=== PATIENT | male | born 1935 | race Caucasian/White ===

== ENCOUNTER 2017-08-05 13:53 | Inpatient (IN) | payer MEDICARE, MEDICAID ==
--- NOTE | 2017-08-05 14:30 | ER Document Report ---
ED General - General Chief Complaint: Shortness Of Breath Stated Complaint: SHORTNESS OF BREATH Time Seen by Provider: 08/05/17 14:03 Notes: 81-year-old male with CHF presents with worsening shortness of breath for 3 days combined with orthopnea and leg swelling now constant and increasing. No med changes no dietary indiscretions. Sent with hypoxia from his employee adviser' s office. TRAVEL OUTSIDE OF THE [place] IN LAST 30 DAYS: No - Related Data Allergies/Adverse Reactions: No Known Allergies Allergy (Verified 08/05/17 14:42) Past Medical History - Social History Smoking Status: Former Smoker Family History: Malignancy - Past Medical History Cardiac Medical History: Reports: Hx Atrial Fibrillation, Hx Congestive Heart Failure, Hx Coronary Artery Disease, Hx Hypercholesterolemia, Hx Hypertension - on meds Denies: Hx Heart Attack Pulmonary Medical History: Denies: Hx Asthma, Hx Bronchitis, Hx COPD, Hx Pneumonia Neurological Medical History: Denies: Hx Cerebrovascular Accident, Hx Seizures Endocrine Medical History: Reports: Hx Diabetes Mellitus Type 2 Renal/ Medical History: Reports: Hx Benign Prostatic Hyperplasia Musculoskeltal Medical History: Reports Hx Arthritis Psychiatric Medical History: Denies: Hx Depression - Immunizations Immunizations up to date: Yes Hx Diphtheria, Pertussis, Tetanus Vaccination: No - unsure Hx Pneumococcal Vaccination: 05/30/12 Review of Systems - Review of Systems Notes: REVIEW OF SYSTEMS GEN: Denies fever, chills, weight loss ENT: Denies sore throat, nasal discharge, ear pain EYES: Denies blurry vision, eye pain, discharge CV: Denies chest pain, palpitations, edema RESP: Denies cough, s positive shortness of breath and difficulty breathing GI: Denies abdominal pain, nausea, vomiting, diarrhea MSK: Denies joint pain, positive bilateral leg swelling SKIN: Denies rash, skin lesions LYMPH: Denies swollen glands/lymph nodes NEURO: Denies headache, focal weakness or numbness, dizziness PSYCH: Denies depression, suicidal or homicidal ideation PHYSICAL EXAMINATION General: Mild distress acutely ill Head: Atraumatic, normocephalic ENT: Mouth normal, oropharynx moist, no exudates or tonsillar enlargement Eyes: Conjunctiva normal, pupils equal, lids normal Neck: No JVD, supple, no guarding CVS: Normal rate, regular rhythm, no murmurs Resp: Mild respiratory distress, diminished at bilateral bases, tachypneic GI: Nondistended, soft, no tenderness to palpation, no rebound or guarding Ext: No deformities, 2+ bilateral leg edema, normal range of motion in upper and lower ext Back: No CVA or midline TTP Skin: No rash, warm Lymphatic: No lymphadeopathy noted Neuro: Awake, alert. Face symmetric. GCS 15. Physical Exam - Vital signs Vitals: Resp Pulse Ox 17 93 08/05/17 14:00 08/05/17 14:00 Course - Re-evaluation Re-evalutation: 08/05/17 14:30 Signs and symptoms of worsening congestive heart failure. No fever cough to suggest pneumonia. Patient is requiring 6 L nasal cannula but does not need BiPAP at this time. His ECG shows a conduction block which is old with no acute ischemia. X-rays ordered labs we ordered. Aspirin will be given. Differential includes CHF salt load dietary noncompliance, uncontrolled hypertension. 08/05/17 15:03 Patient stable in the ED. Labs show elevated BNP but a negative troponin. X- ray confirms heart failure. Given Lasix and aspirin. Discussed case with Dr. kapoor hospitalist who will admit to the hospital. - Vital Signs Vital signs: Temp Pulse Resp BP Pulse Ox 17 117/64 93 08/05/17 14:16 08/05/17 14:16 08/05/17 14:16 - Laboratory Result Diagrams: 08/05/17 14:05 08/05/17 14:05 Laboratory results interpreted by me: 08/05/17 08/05/17 08/05/17 14:05 14:05 14:05 WBC 17.7 H RDW 15.0 H Seg Neuts % (Manual) 87 H Lymphocytes % (Manual) 10 L Abs Neuts (Manual) 15.4 H BUN 40 H Creatinine 1.56 H Est GFR ( Amer) 52 L Est GFR (Non-Af Amer) 43 L NT-Pro-B Natriuret Pep 5120 H - Diagnostic Test Radiology reviewed: Image reviewed, Reports reviewed - EKG Interpretation by Me EKG shows normal: Sinus rhythm Rate: Normal [place]/QRS: RBBB When compared to previous EKG there are: No significant change Discharge - Discharge Clinical Impression: Acute decompensated heart failure Condition: Fair Disposition: ADMITTED INPATIENT Admitting Provider: Hospitalist Unit Admitted: Telemetry Referrals: KATHI GARCIA MD [Primary Care Provider] - Follow up as needed
[2017-08-05 14:32] LABS: HEMATOCRIT 41.2 % (37.9-51.0); HEMOGLOBIN 13.9 g/dL (13.5-17.0); MEAN CORPUSCULAR HEMOGLOBIN 30.5 pg (27.0-33.4); MEAN CORPUSCULAR HGB CONC 33.6 g/dL (32.0-36.0); MEAN CORPUSCULAR VOLUME 91 fl (80-97); PLATELET COUNT 172 10^3/uL (150-450); RED BLOOD COUNT 4.54 10^6/uL (4.35-5.55); WHITE BLOOD COUNT 17.7 10^3/uL (4.0-10.5)
[2017-08-05] MEDS ORDERED: FUROSEMIDE INJ/PF 40 MG/4 ML SDV IV ONE (14:39)
[2017-08-05 14:44] LABS: ANION GAP 15 (5-19); BLOOD UREA NITROGEN 40 mg/dL (7-20); CALCIUM 9.9 mg/dL (8.4-10.2); CARBON DIOXIDE 22 mmol/L (22-30); CHLORIDE 103 mmol/L (98-107); GLUCOSE 108 mg/dL (75-110); POTASSIUM 4.8 mmol/L (3.6-5.0); SODIUM 140.1 mmol/L (137-145)
[2017-08-05 14:52] LABS: ABSOLUTE LYMPHOCYTES# (MANUAL) 1.8 10^3/uL (0.5-4.7); ABSOLUTE MONOCYTES # (MANUAL) 0.5 10^3/uL (0.1-1.4); ABSOLUTE NEUTROPHILS# (MANUAL) 15.4 10^3/uL (1.7-8.2); ANISOCYTOSIS SLIGHT; BASOPHILS % (MANUAL) 0 % (0-2); EOSINOPHILS % (MANUAL) 0 % (0-6); HYPOCHROMASIA SLIGHT; LYMPHOCYTES % (MANUAL) 10 % (13-45); MONOCYTES % (MANUAL) 3 % (3-13); PLATELET COMMENT ADEQUATE; POLYCHROMASIA SLIGHT; SEGMENTED NEUTROPHILS % (MAN) 87 % (42-78); TOTAL CELLS COUNTED 100; TOXIC GRANULATION 1+; TOXIC VACUOLATION PRESENT
[2017-08-05 14:56] LABS: NT PRO BNP 5120 pg/mL (<450)
[2017-08-05 14:58] LABS: TROPONIN I < 0.012 ng/mL
--- NOTE | 2017-08-05 15:07 | RADIOLOGY REPORT (SQ) ---
EXAM DESCRIPTION: CHEST SINGLE VIEW COMPLETED DATE/TIME: 08/05/2017 2:49 pm REASON FOR STUDY: CHF SOB COMPARISON: 03/31/2017 NUMBER OF VIEWS: One view. TECHNIQUE: Single frontal radiographic view of the chest acquired. LIMITATIONS: None. FINDINGS: LUNGS AND PLEURA: No opacities, masses or pneumothorax. No pleural effusion. MEDIASTINUM AND HILAR STRUCTURES: No masses or contour abnormality. HEART AND VASCULATURE: Cardiac enlargement. Vascular congestion. BONES: No acute findings. HARDWARE: None in the chest. OTHER: No other significant finding. IMPRESSION: CARDIAC ENLARGEMENT. VASCULAR CONGESTION. TECHNICAL DOCUMENTATION: JOB ID: [id number] [employer]- All Rights Reserved Reading location - IP/workstation name: [email or web address]
[2017-08-05] MEDS ORDERED: METOPROLOL SUCCINATE 25 MG TAB.SR.24H PO ONE (15:14)
[2017-08-05] MEDS ORDERED: GLUCAGON,HUMAN RECOMB 1 MG INJ IM PRN (15:15)
[2017-08-05] MEDS ORDERED: DEXTROSE 50%-WATER 25 GM/50 ML DISP.SYRIN IV PRN ×2 (15:15)
[2017-08-05] MEDS ORDERED: METOLAZONE 2.5 MG TABLET PO SCH (15:15)
[2017-08-05] MEDS ORDERED: DEXTROSE 40% GEL 15 GM TUBE PO PRN ×2 (15:15)
--- NOTE | 2017-08-05 15:25 | RADIOLOGY REPORT (SQ) ---
EXAM DESCRIPTION: CT HEAD WITHOUT COMPLETED DATE/TIME: 08/05/2017 3:13 pm REASON FOR STUDY: fall laceration COMPARISON: None. TECHNIQUE: Axial images acquired through the brain without intravenous contrast. Images reviewed wi th bone, brain and subdural windows. Images stored on PACS. All CT scanners at this facility use dose modulation, iterative reconstruction, and/or weight based d osing when appropriate to reduce radiation dose to as low as reasonably achievable (ALARA). [facility]: Dose Right [facility]: CareDose [facility]: Dose Right [facility]: Teradose 4D [facility]: [employer] RADIATION DOSE: CT Rad equipment meets quality standard of care and radiation dose reduction techniq ues were employed. CTDIvol: 64.6 mGy. DLP: 1034 mGy-cm.mGy. LIMITATIONS: None. FINDINGS: VENTRICLES: Prominent. CEREBRUM: No masses. No hemorrhage. No midline shift. Areas of low density in the white matter mos t likely due to chronic micro-vascular ischemic change. No evidence for acute infarction. CEREBELLUM: No masses. No hemorrhage. No alteration of density. No evidence for acute infarction. EXTRAAXIAL SPACES: Age-related involutional change. No fluid collections. No masses. ORBITS AND GLOBE: No intra- or extraconal masses. Normal contour of globe without masses. CALVARIUM: No fracture. PARANASAL SINUSES: No fluid or mucosal thickening. SOFT TISSUES: Left posterior scalp swelling/hematoma. OTHER: No other significant finding. IMPRESSION: CHRONIC CHANGES OF ATROPHY AND MICROVASCULAR ISCHEMIA. LEFT POSTERIOR SCALP SWELLING/HE MATOMA. NO FRACTURE OR OTHER ACUTE FINDINGS. EVIDENCE OF ACUTE STROKE: NO. TECHNICAL DOCUMENTATION: JOB ID: [id number] Quality ID # [id number]: Final reports with documentation of one or more dose reduction techniques (e.g., Au tomated exposure control, adjustment of the mA and/or kV according to patient size, use of iterative reconstruction technique) 2010 [employer]- All Rights Reserved Reading location - IP/workstation name: [email or web address]-[email or web address]
[2017-08-05 16:32] LABS: INTERNATIONAL RATION (INR) 2.31; PROTHROMBIN TIME 26.6 SEC (11.4-15.4)
--- NOTE | 2017-08-05 17:19 | RADIOLOGY REPORT (SQ) ---
EXAM DESCRIPTION: ANKLE RIGHT COMPLETE COMPLETED DATE/TIME: 08/05/2017 5:00 pm REASON FOR STUDY: fall COMPARISON: None. NUMBER OF VIEWS: Three views. TECHNIQUE: AP, lateral, and oblique radiographic images acquired of the right ankle. LIMITATIONS: None. FINDINGS: MINERALIZATION: Normal. BONES: No acute fracture or dislocation. No worrisome bone lesions. JOINTS: No effusions. SOFT TISSUES: No soft tissue swelling. No foreign body. OTHER: No other significant finding. IMPRESSION: NEGATIVE STUDY OF THE RIGHT ANKLE. NO RADIOGRAPHIC EVIDENCE OF ACUTE INJURY. TECHNICAL DOCUMENTATION: JOB ID: [id number] [employer]- All Rights Reserved Reading location - IP/workstation name: [email or web address]
[2017-08-05 18:05] LABS: APPEARANCE,URINE SLIGHTLY-CLOUDY; BILIRUBIN,URINE NEGATIVE (NEGATIVE); COLOR,URINE YELLOW; GLUCOSE, URINE NEGATIVE (NEGATIVE); KETONES,URINE NEGATIVE (NEGATIVE); LEUKOCYTE ESTERASE,URINE MODERATE (NEGATIVE); NITRITE,URINE NEGATIVE (NEGATIVE); PROTEIN,URINE 30 mg/dL (NEGATIVE); URINE SPECIFIC GRAVITY 1.011; UROBILINOGEN,URINE NEGATIVE mg/dL (<2.0)
[2017-08-05] MEDS: TAMSULOSIN HCL 0.4 MG CAP.SR.24H PO SCH (18:44)
--- NOTE | 2017-08-05 21:10 | EKG REPORT ---
SEVERITY:- ABNORMAL ECG - SINUS RHYTHM ATRIAL PREMATURE COMPLEX IVCD, CONSIDER ATYPICAL RBBB INFERIOR INFARCT, OLD LATERAL INFARCT, AGE INDETERMINATE ANTERIOR INFARCT, AGE INDETERMINATE : Confirmed by: Rafi Mendoza 05-Aug-2017 21:08:53
[2017-08-05] MEDS: FUROSEMIDE INJ/PF 40 MG/4 ML SDV IV SCH (21:59)
[2017-08-05] MEDS ORDERED: SIMVASTATIN 40 MG TABLET PO SCH (22:00)
--- NOTE | 2017-08-06 00:42 | PDOC H&P ---
History of Present Illness Admission Date/PCP: 08/05/17 15:09 KATHI GARCIA MD Patient complains of: CHF exacerbation and syncope History of Present Illness: CHAO VERMA is a 81 year old male history of atrial fibrillation on Coumadin, CKD, hypoxic respiratory failure on oxygen, gait dysfunction, BPH, obstructive sleep apnea on CPAP, congestive heart failure presenting with increasing shortness of breath and pedal edema. Patient does use supplemental oxygen however does not use as he should. Patient also states that he did not take his Lasix today because he had to go to his doctor's appointment and did not want to have to urinate. Patient states that he took his oxygen tank to the car and when he went back to his house to lock the door he woke up on his back on the ground staring up at the mayuri. Patient got up and proceeded to drive himself to his cardiology appointment. Patient was sent from Dr. Mendoza office to the ED for further evaluation. Patient denied any chest pain but does report having a lot of dizzy spells. He states that his dizzy spells are chronic. Patient reports hitting his head and hurting his right ankle. In the ED patient was noted to have vascular congestion and a BNP of 5120. Patient also had a laceration to the left side of his scalp and a hematoma. CT scan done and did not show any intracranial bleeding. Hospitalist was called to admit patient for CHF exacerbation with mild hypoxia. Past Medical History Cardiac Medical History: Reports: Atrial Fibrillation, Congestive Heart Failure , Coronary Artery Disease, Hyperlipidema, Hypertension - on meds Denies: Myocardial Infarction Pulmonary Medical History: Denies: Asthma, Bronchitis, Chronic Obstructive Pulmonary Disease (COPD), Pneumonia Neurological Medical History: Denies: Seizures Endocrine Medical History: Reports: Diabetes Mellitus Type 2 Musculoskeltal Medical History: Reports: Arthritis Psychiatric Medical History: Denies: Depression Hematology: Denies: Anemia Past Surgical History Past Surgical History: Reports: Other - Skin cancer excision Social History Smoking Status: Former Smoker Frequency of Alcohol Use: None Hx Recreational Drug Use: No Drugs: None Hx Prescription Drug Abuse: No - Advance Directive Resuscitation Status: Full Code Family History Family History: Malignancy Parental Family History Reviewed: No Children Family History Reviewed: No Sibling(s) Family History Reviewed.: No Medication/Allergy Home Medications: Amlodipine Besylate [Norvasc 5 mg Tablet] 5 mg PO DAILY 08/05/17 Atenolol [Tenormin 50 mg Tablet] 25 mg PO DAILY 08/05/17 Diltiazem HCl [Cartia Xt] 180 mg PO Q12 08/05/17 Febuxostat [Uloric 40 mg Tablet] 40 mg PO MOWEFR@0800 08/05/17 Furosemide [Lasix 40 mg Tablet] 40 mg PO MOWEFR@0800 08/05/17 Glipizide [Glipizide Xl] 10 mg PO DAILY 08/05/17 Insulin Detemir [Levemir Flextouch] 30 unit SQ QHS 08/05/17 Losartan Potassium [Cozaar 100 mg Tablet] 100 mg PO DAILY 08/05/17 Metformin HCl [Glucophage 500 mg Tablet] 500 mg PO DAILY 08/05/17 Metolazone [Zaroxolyn 2.5 mg Tablet] 2.5 mg PO MOWEFR@0800 08/05/17 Potassium Chloride [Klor-Con M20] 20 meq PO MOWEFR@0800 08/05/17 Simvastatin [Zocor 20 mg Tablet] 20 mg PO QHS 08/05/17 Tamsulosin HCl [Flomax 0.4 mg Cap.sr] 0.4 mg PO PCSUPPER 08/05/17 Warfarin Sodium [Coumadin 5 mg Tablet] 5 mg PO DAILY 08/05/17 Allergies/Adverse Reactions: No Known Allergies Allergy (Verified 08/05/17 14:42) Review of Systems Constitutional: ABSENT: chills, fever(s), headache(s), weight gain, weight loss Eyes: ABSENT: visual disturbances Ears: ABSENT: hearing changes Cardiovascular: PRESENT: dyspnea on exertion, edema, orthropnea. ABSENT: chest pain, palpitations Respiratory: ABSENT: cough, hemoptysis Gastrointestinal: ABSENT: abdominal pain, constipation, diarrhea, hematemesis, hematochezia, nausea, vomiting Genitourinary: ABSENT: dysuria, hematuria Musculoskeletal: ABSENT: joint swelling Integumentary: ABSENT: rash, wounds Neurological: PRESENT: dizziness, syncope. ABSENT: abnormal gait, abnormal speech, confusion, focal weakness Psychiatric: ABSENT: anxiety, depression, homidical ideation, suicidal ideation Endocrine: ABSENT: cold intolerance, heat intolerance, polydipsia, polyuria Hematologic/Lymphatic: ABSENT: easy bleeding, easy bruising Physical Exam Vital Signs: Temp Pulse Resp BP Pulse Ox 80 17 130/76 H 98 08/05/17 18:40 08/05/17 22:32 08/05/17 18:40 08/05/17 22:32 Intake & Output 08/04/17 08/05/17 08/06/17 06:59 06:59 06:59 Weight 83.007 kg General appearance: PRESENT: no acute distress, mild distress Head exam: PRESENT: other - Hematoma on the left side of his scalp Eye exam: PRESENT: EOMI. ABSENT: scleral icterus Ear exam: PRESENT: normal external ear exam Mouth exam: PRESENT: moist Neck exam: ABSENT: carotid bruit, JVD, lymphadenopathy, thyromegaly Respiratory exam: PRESENT: decreased breath sounds, other - Lateral basilar crackles. ABSENT: rales, rhonchi Cardiovascular exam: PRESENT: RRR. ABSENT: diastolic murmur, rubs, systolic murmur GI/Abdominal exam: PRESENT: normal bowel sounds, soft. ABSENT: distended, guarding, mass, organolmegaly, rebound, tenderness Rectal exam: PRESENT: deferred Extremities exam: PRESENT: +2 edema. ABSENT: calf tenderness, clubbing, pedal edema Neurological exam: PRESENT: alert, awake, oriented to person, oriented to place , oriented to time, oriented to situation, CN II-XII grossly intact. ABSENT: motor sensory deficit Psychiatric exam: PRESENT: appropriate affect, normal mood. ABSENT: homicidal ideation, suicidal ideation Skin exam: PRESENT: dry, intact, warm. ABSENT: cyanosis, rash Results Laboratory Results: 08/05/17 17:00 Urine Color YELLOW Urine Appearance SLIGHTLY-CLOUDY Urine pH 5.0 Ur Specific [place] 1.011 Urine Protein 30 H Urine Glucose (UA) NEGATIVE Urine Ketones NEGATIVE Urine Blood NEGATIVE Urine Nitrite NEGATIVE Ur Leukocyte Esterase MODERATE H Urine WBC (Auto) 39 Urine RBC (Auto) 2 Impressions: Ankle X-Ray 08/05/17 00:00 IMPRESSION: NEGATIVE STUDY OF THE RIGHT ANKLE. NO RADIOGRAPHIC EVIDENCE OF ACUTE INJURY. Chest X-Ray 08/05/17 14:04 IMPRESSION: CARDIAC ENLARGEMENT. VASCULAR CONGESTION. Head CT 08/05/17 15:04 IMPRESSION: CHRONIC CHANGES OF ATROPHY AND MICROVASCULAR ISCHEMIA. LEFT POSTERIOR SCALP SWELLING/HEMATOMA. NO FRACTURE OR OTHER ACUTE FINDINGS. EVIDENCE OF ACUTE STROKE: NO. Assessment & Plan - Diagnosis (1) Acute and chronic respiratory failure with hypoxia Is this a current diagnosis for this admission?: Yes Plan: On chronic hypoxic respiratory failure secondary to CHF exacerbation. Patient also noncompliant with using his supplemental oxygen. (2) Syncope and collapse Plan: Syncopal episode. Patient reports having dizzy spells. These can be secondary to his medications. Patient on several medications which can cause orthostasis. Was check orthostatic blood pressures. Patient already on telemetry. Will check cardiac echo and carotid Dopplers. PT consulted. (3) Leukocytosis Is this a current diagnosis for this admission?: Yes Plan: Patient with a white count of 17,000. Chest x-ray shows congestion. Patient denies feeling sick or having any urinary symptoms. Will check a UA. UA did show leukocyte esterase large WBC. Will start patient on ceftriaxone. Will send specimen and lab for culture. Can DC antibiotics if culture is negative. (4) Acute on chronic diastolic congestive heart failure Is this a current diagnosis for this admission?: Yes Plan: Patient acute exacerbation of grade 2 diastolic dysfunction. Patient last cardiac echo was done in 2015. Will start patient on IV Lasix 40 mg twice daily along with metolazone. Patient on Toprol-XL and losartan. Will place patient on fluid restriction and low-sodium diet. Will Court strict ins and outs and daily weights. Will consult patient paleobotanist Dr. Mendoza. Will repeat cardiac echo. Monitor electrolytes closely and replace accordingly. (5) Atrial fibrillation and flutter Is this a current diagnosis for this admission?: Yes Plan: Patient with chronic history of atrial fibrillation and atrial flutter flutter. Patient on Coumadin for anticoagulation. Patient normally on atenolol however switched to Toprol XL 25 mg daily. Patient heart rate is well controlled at this time. Patient normally on diltiazem as well. Can reintroduce this medication if blood pressure tolerates. (6) CKD (chronic kidney disease), stage III Is this a current diagnosis for this admission?: Yes Plan: She was CKD stage III which appears to be stable at this time. (7) Obstructive sleep apnea Is this a current diagnosis for this admission?: Yes Plan: Continue CPAP at night. (8) Diabetes mellitus Qualifiers: Diabetes mellitus type: type 2 Diabetes mellitus complication status: without complication Qualified Code(s): E11.9 - Type 2 diabetes mellitus without complications Is this a current diagnosis for this admission?: Yes Plan: You home regimen and sliding scale insulin. (9) Trauma Is this a current diagnosis for this admission?: Yes Plan: CT scan of the head shows left scalp hematoma. Will order x-ray of patient's right ankle as he states it is painful. Follow-up shows that the x-ray of the ankle is negative. - Time Time Spent: 30 to 50 Minutes - Inpatient Certification Medical Necessity: Significant Comorbidiites Make Outpatient Treatment Too Risky , Need Close Monitoring Due to Risk of Patient Decompensation
[2017-08-06] MEDS ORDERED: SIMVASTATIN 40 MG TABLET PO SCH (00:46)
[2017-08-06] MEDS: LANSOPRAZOLE 30 MG TAB.RAP.DR PO SCH (06:30)
[2017-08-06 06:43] LABS: ABSOLUTE BASOPHILS # (AUTO) 0.1 10^3/uL (0.0-0.2); ABSOLUTE MONOCYTES (AUTO) 1.4 10^3/uL (0.1-1.4); ABSOLUTE NEUT (AUTO) 15.1 10^3/uL (1.7-8.2); BASOPHILS % (AUTO) 0.4 % (0-2); EOSINOPHILS % (AUTO) 0.1 % (0-6); HEMATOCRIT 38.1 % (37.9-51.0); HEMOGLOBIN 12.5 g/dL (13.5-17.0); LYMPHOCYTES % (AUTO) 5.7 % (13-45); MEAN CORPUSCULAR HGB CONC 32.8 g/dL (32.0-36.0); MEAN CORPUSCULAR VOLUME 91 fl (80-97); PLATELET COUNT 157 10^3/uL (150-450); RED BLOOD COUNT 4.17 10^6/uL (4.35-5.55); RED CELL DISTRIBUTION WIDTH 15.1 % (11.5-14.0); SEGMENTED NEUTROPHILS % (AUTO) 85.8 % (42-78); TOTAL CELLS COUNTED % (AUTO) 100 %; WHITE BLOOD COUNT 17.5 10^3/uL (4.0-10.5)
[2017-08-06 07:01] LABS: INTERNATIONAL RATION (INR) 1.98; PROTHROMBIN TIME 23.6 SEC (11.4-15.4)
[2017-08-06] MEDS ORDERED: WARFARIN SODIUM 4.5 MG PO SCH (10:00)
[2017-08-06] MEDS ORDERED: CEFTRIAXONE 1 GM/D5W RTU 1 GM/50 ML RTUPB IV SCH (10:00)
[2017-08-06] MEDS ORDERED: (PENDING PHARMACY ID) (Warfarin Sodium 5 MG) PO SCH (10:00)
[2017-08-06] MEDS ORDERED: WARFARIN SODIUM 5 MG TABLET PO SCH ×2 (10:00→22:00)
[2017-08-06] MEDS: CEFTRIAXONE SODIUM 1,000 MG in NORMAL SALINE 100 ML IV SCH (10:27)
[2017-08-06] MEDS: LOSARTAN POTASSIUM 50 MG TABLET PO SCH (10:28)
[2017-08-06] MEDS: METOPROLOL SUCCINATE 25 MG TAB.SR.24H PO SCH (10:29)
[2017-08-06] MEDS: FUROSEMIDE INJ/PF 40 MG/4 ML SDV IV SCH ×2 (10:29→21:26)
[2017-08-06] MEDS: ACETAMINOPHEN 325 MG TABLET PO PRN (10:45)
--- NOTE | 2017-08-06 14:28 | PDOC PROGRESS REPORT ---
Subjective Progress Note for:: 08/06/17 Subjective:: The patient is an 81-year-old male who sustained a syncopal episode yesterday while he was getting ready to go to his cardiology appointment. He did in fact drive himself to Dr. Mendoza's office. Dr. Mendoza then sent the patient to the emergency department for further evaluation. During the fall the patient did have a laceration of his scalp and hurt his right ankle. His right ankle is still exquisitely painful today but x-ray does not demonstrate a fracture. However, patient was unable to bear weight this morning with physical therapy. Reason For Visit: HEART FAILURE Physical Exam Vital Signs: Temp Pulse Resp BP Pulse Ox 98.6 F 80 18 111/63 93 08/06/17 11:42 08/06/17 11:42 08/06/17 11:42 08/06/17 11:42 08/06/17 11:42 Intake & Output 08/05/17 08/06/17 08/07/17 06:59 06:59 07:59 Intake Total 350 100 Output Total 975 Balance -625 100 Weight 79.3 kg Additional comments: The patient is an extremely pleasant elderly white male. His cognition and mentation are appropriate. His facial appearance is unremarkable. He appears to be well-nourished and well-developed. The patient's lungs are fairly clear but he does have crackles only at the left base posteriorly. His cardiac exam at this time is irregularly irregular. I do not appreciate any murmurs, gallops or rubs. The abdomen is obese but soft. Bowel sounds are present. Does not have any guarding or rebound noted and there are no hernias or masses present. The patient does have 2+ edema bilaterally. Patient's right ankle is exquisitely tender but there are no obvious deformities of the ankle. There are no acute skin lesions or rashes. The patient does have chronic changes of venous stasis. Results Laboratory Results: 08/06/17 06:25 08/05/17 08/06/17 08/06/17 17:00 06:25 06:25 WBC 17.5 H RBC 4.17 L Hgb 12.5 L Hct 38.1 MCV 91 MCH 30.0 MCHC 32.8 RDW 15.1 H Plt Count 157 Seg Neutrophils % 85.8 H Lymphocytes % 5.7 L Monocytes % 8.0 Eosinophils % 0.1 Basophils % 0.4 Absolute Neutrophils 15.1 H Absolute Lymphocytes 1.0 Absolute Monocytes 1.4 Absolute Eosinophils 0.0 Absolute Basophils 0.1 Magnesium 1.8 Urine Color YELLOW Urine Appearance SLIGHTLY-CLOUDY Urine pH 5.0 Ur Specific [place] 1.011 Urine Protein 30 H Urine Glucose (UA) NEGATIVE Urine Ketones NEGATIVE Urine Blood NEGATIVE Urine Nitrite NEGATIVE Ur Leukocyte Esterase MODERATE H Urine WBC (Auto) 39 Urine RBC (Auto) 2 Impressions: Ankle X-Ray 08/05/17 00:00 IMPRESSION: NEGATIVE STUDY OF THE RIGHT ANKLE. NO RADIOGRAPHIC EVIDENCE OF ACUTE INJURY. Chest X-Ray 08/05/17 14:04 IMPRESSION: CARDIAC ENLARGEMENT. VASCULAR CONGESTION. Head CT 08/05/17 15:04 IMPRESSION: CHRONIC CHANGES OF ATROPHY AND MICROVASCULAR ISCHEMIA. LEFT POSTERIOR SCALP SWELLING/HEMATOMA. NO FRACTURE OR OTHER ACUTE FINDINGS. EVIDENCE OF ACUTE STROKE: NO. Assessment & Plan - Diagnosis (1) Acute and chronic respiratory failure with hypoxia Is this a current diagnosis for this admission?: Yes Plan: Continue supplemental oxygen. (2) Leukocytosis Is this a current diagnosis for this admission?: Yes Plan: For some reason urine culture was canceled. I will reorder. In the interim we will continue ceftriaxone. (3) Syncope and collapse Is this a current diagnosis for this admission?: Yes Plan: Echocardiogram has been ordered. Cardiology consultation has been ordered. This is likely multifactorial from medications that can lead to orthostasis, hypoxia, unsteady gait. (4) Trauma Is this a current diagnosis for this admission?: Yes Plan: Patient is not a very good candidate for Coumadin. (5) Acute on chronic diastolic congestive heart failure Is this a current diagnosis for this admission?: Yes Plan: Per cardiology. (6) Diabetes mellitus Qualifiers: Diabetes mellitus type: type 2 Diabetes mellitus complication status: without complication Qualified Code(s): E11.9 - Type 2 diabetes mellitus without complications Is this a current diagnosis for this admission?: Yes Plan: Continue detemir and SSI. (7) Atrial fibrillation and flutter Is this a current diagnosis for this admission?: Yes Plan: Continue rate control agents. Patient is not a good candidate for anticoagulation. (8) CKD (chronic kidney disease), stage III Is this a current diagnosis for this admission?: Yes Plan: Stable. (9) Obstructive sleep apnea Is this a current diagnosis for this admission?: Yes Plan: Continue nightly CPAP. - Time Time Spent with patient: 25-34 minutes - Inpatient Certification Medical Necessity: Significant Comorbidiites Make Outpatient Treatment Too Risky , Need Close Monitoring Due to Risk of Patient Decompensation, Need For Continuous Telemetry Monitoring, Need for Pain Control, Need for IV Antibiotics , Risk of Complication if Not Cared For in Hospital, Risk of Diagnosis Which Will Require Inpatient Eval/Care/Monitoring
[2017-08-06 15:41] LABS: INTERNATIONAL RATION (INR) 1.91
--- NOTE | 2017-08-06 16:59 | PDOC CONSULTATION ---
Consultation Consult Date: 08/06/17 Attending physician:: LOUIE COOK Consult reason:: CHF History of Present Illness Admission Date/PCP: 08/05/17 15:09 KATHI GARCIA MD Patient complains of: Fall and shortness of breath and increasing pedal edema History of Present Illness: CHAO VERMA is a 81 year old male history of atrial fibrillation on Coumadin, CKD, hypoxic respiratory failure on oxygen, gait dysfunction, BPH, obstructive sleep apnea on CPAP, congestive heart failure presenting with increasing shortness of breath and pedal edema. Patient does use supplemental oxygen however does not use as he should. Patient also states that he did not take his Lasix today because he had to go to his doctor's appointment and did not want to have to urinate. Patient states that he took his oxygen tank to the car and when he went back to his house to lock the door he woke up on his back on the ground staring up at the mayuri. Patient got up and proceeded to drive himself to his cardiology appointment. Patient was sent from Dr. Mendoza office to the ED for further evaluation. Patient denied any chest pain but does report having a lot of dizzy spells. He states that his dizzy spells are chronic. Patient reports hitting his head and hurting his right ankle. In the ED patient was noted to have vascular congestion and a BNP of 5120. Patient also had a laceration to the left side of his scalp and a hematoma. CT scan done and did not show any intracranial bleeding. Hospitalist was called to admit patient for CHF exacerbation with mild hypoxia. This history was reviewed and mostly confirmed. Patient now claims that he tripped and fell rather than lost consciousness. He was seen by my physician executive administrative assistant yesterday in the office and was sent to the ER because of increasing pedal edema and a rather large bump on his head. She was concerned about internal bleeding. Subsequently CT scan was negative for internal bleed. Patient was however admitted for evaluation of CHF, which has been noted to be worsening and possible syncopal spells. Past Medical History Cardiac Medical History: Reports: Atrial Fibrillation, Congestive Heart Failure , Coronary Artery Disease, Hyperlipidema, Hypertension - on meds Denies: Myocardial Infarction Pulmonary Medical History: Denies: Asthma, Bronchitis, Chronic Obstructive Pulmonary Disease (COPD), Pneumonia Neurological Medical History: Denies: Seizures Endocrine Medical History: Reports: Diabetes Mellitus Type 2 Musculoskeltal Medical History: Reports: Arthritis Psychiatric Medical History: Denies: Depression Hematology: Denies: Anemia Past Surgical History Past Surgical History: Reports: Other - Skin cancer excision Social History Information Source: Patient Smoking Status: Former Smoker Frequency of Alcohol Use: None Hx Recreational Drug Use: No Drugs: None Hx Prescription Drug Abuse: No - Advance Directive Resuscitation Status: Full Code Surrogate healthcare decision maker:: Surrogate decision-maker this patient's brother. Family History Family History: Malignancy Parental Family History Reviewed: Yes Children Family History Reviewed: Yes Sibling(s) Family History Reviewed.: Yes - Negative for premature coronary artery disease or sudden cardiac in immediate family members. Medication/Allergy Home Medications: Amlodipine Besylate [Norvasc 5 mg Tablet] 5 mg PO DAILY 08/05/17 Atenolol [Tenormin 50 mg Tablet] 25 mg PO DAILY 08/05/17 Diltiazem HCl [Cartia Xt] 180 mg PO Q12 08/05/17 Febuxostat [Uloric 40 mg Tablet] 40 mg PO MOWEFR@0800 08/05/17 Furosemide [Lasix 40 mg Tablet] 40 mg PO MOWEFR@0800 08/05/17 Glipizide [Glipizide Xl] 10 mg PO DAILY 08/05/17 Insulin Detemir [Levemir Flextouch] 30 unit SQ QHS 08/05/17 Losartan Potassium [Cozaar 100 mg Tablet] 100 mg PO DAILY 08/05/17 Metformin HCl [Glucophage 500 mg Tablet] 500 mg PO DAILY 08/05/17 Metolazone [Zaroxolyn 2.5 mg Tablet] 2.5 mg PO MOWEFR@0800 08/05/17 Potassium Chloride [Klor-Con M20] 20 meq PO MOWEFR@0800 08/05/17 Simvastatin [Zocor 20 mg Tablet] 20 mg PO QHS 08/05/17 Tamsulosin HCl [Flomax 0.4 mg Cap.sr] 0.4 mg PO PCSUPPER 08/05/17 Warfarin Sodium [Coumadin 5 mg Tablet] 5 mg PO DAILY 08/05/17 Allergies/Adverse Reactions: No Known Allergies Allergy (Verified 08/05/17 14:42) Review of Systems Review of Systems: Please see history of present illness and past medical history as wall. Constitutional: No fever or chills reported. Head : No recent chronic headaches, recent head injury. Eyes: No recent eye pain, diplopia, redness, discharge, acute visual changes. Ears: No recent chronic ear pain, acute hearing loss, ear discharge. Oral cavity: No recent ulcerations, bleeding, oral cavity discomfort. Neck: No recent acute neck pain reported. Hematologic: No recent easy bruising or bleeding or hematologic malignancy reported. Lymphatic: No recent lymphatic malignancy, chronic lymphadenopathy reported yet Cardiovascular system review: See history of present illness. Respiratory system review: No recent chronic cough, hemoptysis, blood clots in the lungs reported. Mild Shortness of breath on exertion. Increasing pedal edema noted. Gastrointestinal system review: Negative for any recent acute or chronic abdominal pain, hematemesis, melena, recent change in bowel habits. Genitourinary system review: No recent acute or chronic hematuria, flank pain, UTI etc. reported. Skin system review: Negative for any recent abnormal bruising, no rash, no pruritus reported. Neurologic: No prior history of strokes, mini strokes, seizure disorder. Psychologic: No history of major psychosis or major depression reported. Musculoskeletal: Minor aches and pains reported. No acute joint swelling reported. Endocrine: No recent polyuria, polydipsia, recent heat or cold intolerance. Physical Exam Vital Signs: Temp Pulse Resp BP Pulse Ox 98.6 F 83 18 111/63 93 08/06/17 11:42 08/06/17 15:20 08/06/17 11:42 08/06/17 11:42 08/06/17 11:42 Intake & Output 08/05/17 08/06/17 08/07/17 06:59 06:59 07:59 Intake Total 350 340 Output Total 975 Balance -625 340 Weight 79.3 kg Exam: GENERAL: well-nourished and in no acute distress. Alert and oriented x3 HEAD: Atraumatic, normocephalic. EYES: Pupils equal round and reactive to light, extraocular movements intact, sclera anicteric, conjunctiva are normal. ENT: TMs normal, nares patent, oropharynx clear without exudates. Moist mucous membranes. No oral ulcerations or bleeding gums noted NECK: supple without lymphadenopathy. Trachea is central. No cervical or axillary lymphadenopathy noted. Carotids are 2+, JVD WNL LUNGS: Respiration seems nonlabored, no significant accessory muscle action noted. Bilateral coarse crackles with few scattered wheezes rales or rhonchi noted. No significant dullness noted on percussion. CHEST: Palpation of the chest wall shows no significant chest wall tenderness. No other significant abnormalities noted. 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 ABDOMEN: Soft, no significant tenderness appreciated, normoactive bowel sounds. No guarding, no rebound. No rigidity noted . No masses appreciated. EXTREMITIES: Pedal pulses are 1-2+, no calf tenderness noted. No clubbing or cyanosis.2+ pedal edema noted NEUROLOGICAL: Focused neurological exam showed no significant neurologic deficit. Normal speech, no focal weakness appreciated. PSYCH: Normal mood, normal affect. Judgment and insight within normal limits. SKIN: No significant ecchymosis, skin is noted to be warm. MUSCULOSKELETAL EXAM: No significant acute joint swelling noted. Results Laboratory Results: 08/06/17 06:25 08/05/17 08/06/17 08/06/17 17:00 06:25 06:25 WBC 17.5 H RBC 4.17 L Hgb 12.5 L Hct 38.1 MCV 91 MCH 30.0 MCHC 32.8 RDW 15.1 H Plt Count 157 Seg Neutrophils % 85.8 H Lymphocytes % 5.7 L Monocytes % 8.0 Eosinophils % 0.1 Basophils % 0.4 Absolute Neutrophils 15.1 H Absolute Lymphocytes 1.0 Absolute Monocytes 1.4 Absolute Eosinophils 0.0 Absolute Basophils 0.1 Magnesium 1.8 Urine Color YELLOW Urine Appearance SLIGHTLY-CLOUDY Urine pH 5.0 Ur Specific [place] 1.011 Urine Protein 30 H Urine Glucose (UA) NEGATIVE Urine Ketones NEGATIVE Urine Blood NEGATIVE Urine Nitrite NEGATIVE Ur Leukocyte Esterase MODERATE H Urine WBC (Auto) 39 Urine RBC (Auto) 2 EKG Comments: Probable sinus rhythm, cannot rule out atrial fibrillation. Right ventricular hypertrophy, APCs, possible inferior AL, old. Impressions: Ankle X-Ray 08/05/17 00:00 IMPRESSION: NEGATIVE STUDY OF THE RIGHT ANKLE. NO RADIOGRAPHIC EVIDENCE OF ACUTE INJURY. Chest X-Ray 08/05/17 14:04 IMPRESSION: CARDIAC ENLARGEMENT. VASCULAR CONGESTION. Head CT 08/05/17 15:04 IMPRESSION: CHRONIC CHANGES OF ATROPHY AND MICROVASCULAR ISCHEMIA. LEFT POSTERIOR SCALP SWELLING/HEMATOMA. NO FRACTURE OR OTHER ACUTE FINDINGS. EVIDENCE OF ACUTE STROKE: NO. Assessment & Plan - Diagnosis (1) Syncope and collapse Is this a current diagnosis for this admission?: Yes (2) Congestive heart failure (CHF) Qualifiers: Heart failure type: diastolic Heart failure chronicity: acute on chronic Qualified Code(s): I50.33 - Acute on chronic diastolic (congestive) heart failure Is this a current diagnosis for this admission?: Yes (3) Acute and chronic respiratory failure with hypoxia Is this a current diagnosis for this admission?: Yes (4) Diabetes mellitus Qualifiers: Diabetes mellitus type: type 2 Diabetes mellitus complication status: without complication Qualified Code(s): E11.9 - Type 2 diabetes mellitus without complications Is this a current diagnosis for this admission?: Yes (5) Dyslipidemia Is this a current diagnosis for this admission?: Yes (6) Hypertension Qualifiers: Hypertension type: essential hypertension Qualified Code(s): I10 - Essential (primary) hypertension Is this a current diagnosis for this admission?: Yes (7) Pulmonary hypertension Is this a current diagnosis for this admission?: Yes (8) Atrial fibrillation Qualifiers: Atrial fibrillation type: paroxysmal Qualified Code(s): I48.0 - Paroxysmal atrial fibrillation Is this a current diagnosis for this admission?: Yes (9) Obstructive sleep apnea Is this a current diagnosis for this admission?: Yes - Notes Notes: Syncope and collapse: Exact etiology not clear. Agree with cardiac monitoring, obtain orthostatic blood pressure recordings. Differential diagnosis includes cardiac dysrhythmia, postural hypotension, hypoglycemia etc. Congestive heart failure: Acute on chronic diastolic heart failure. Patient also has a history of severe pulmonary hypertension. We will repeat an echocardiogram. Diabetes: Recommend good control but avoid any hypo-or hyperglycemia. Dyslipidemia: Continue statin therapy. Hypertension: Systemic would consider liberal control in this elderly gentleman. Pulmonary hypertension: Patient has history of severe pulmonary hypertension. Possibly secondary to chronic left heart failure. Will obtain an arterial blood gas and repeat an echocardiogram. Obstructive sleep apnea: Patient will be instructed to bring his CPAP machine and use during this hospitalization. Abnormal urinalysis: Will discuss with hospitalist to place patient on some antibiotics. Atrial fibrillation: Probably paroxysmal. Continue chronic Coumadin therapy. CODE STATUS was discussed, patient remains full code. Surrogate decision-maker unchanged. Multiple medical problems were addressed. More than 50% of the time spent coordinating care, discussing management plans with involved caregivers. Management plans discussed with involved personnels. Medical decision making was of moderate to high complexity, patient's has multiple comorbidities. - Time Time Spent: 30 to 50 Minutes Medications reviewed and adjusted accordingly: Yes
[2017-08-06] MEDS: TAMSULOSIN HCL 0.4 MG CAP.SR.24H PO SCH (17:23)
[2017-08-06] MEDS: INSULIN DETEMIR 100 UNIT/ML 3 ML PEN SUBCUT SCH (21:25)
[2017-08-06] MEDS: SIMVASTATIN 10 MG TABLET PO SCH (21:26)
[2017-08-06] MEDS: INSULIN LISPRO 100 UNIT/ML 3 ML VIAL SUBCUT PRN (21:26)
[2017-08-07] MEDS: LANSOPRAZOLE 30 MG TAB.RAP.DR PO SCH (06:06)
[2017-08-07 06:46] LABS: ABSOLUTE BASOPHILS # (AUTO) 0.1 10^3/uL (0.0-0.2); ABSOLUTE LYMPHOCYTES (AUTO) 0.8 10^3/uL (0.5-4.7); ABSOLUTE MONOCYTES (AUTO) 1.2 10^3/uL (0.1-1.4); ABSOLUTE NEUT (AUTO) 11.5 10^3/uL (1.7-8.2); BASOPHILS % (AUTO) 0.6 % (0-2); HEMATOCRIT 38.7 % (37.9-51.0); LYMPHOCYTES % (AUTO) 5.8 % (13-45); MEAN CORPUSCULAR HEMOGLOBIN 30.2 pg (27.0-33.4); MEAN CORPUSCULAR HGB CONC 33.6 g/dL (32.0-36.0); MEAN CORPUSCULAR VOLUME 90 fl (80-97); MONOCYTES % (AUTO) 8.6 % (3-13); PLATELET COUNT 143 10^3/uL (150-450); RED CELL DISTRIBUTION WIDTH 15.1 % (11.5-14.0); TOTAL CELLS COUNTED % (AUTO) 100 %; WHITE BLOOD COUNT 13.5 10^3/uL (4.0-10.5)
[2017-08-07 07:07] LABS: ANION GAP 14 (5-19); BLOOD UREA NITROGEN 45 mg/dL (7-20); CALCIUM 9.1 mg/dL (8.4-10.2); CARBON DIOXIDE 26 mmol/L (22-30); CHLORIDE 96 mmol/L (98-107); GLUCOSE 115 mg/dL (75-110); POTASSIUM 3.3 mmol/L (3.6-5.0); SODIUM 136.3 mmol/L (137-145)
[2017-08-07] MEDS ORDERED: POTASSIUM CHLORIDE 10 MEQ TABLET.SA PO ONE (07:47)
[2017-08-07] MEDS: FUROSEMIDE INJ/PF 40 MG/4 ML SDV IV SCH ×2 (09:45→21:48)
[2017-08-07] MEDS: LOSARTAN POTASSIUM 50 MG TABLET PO SCH (09:46)
[2017-08-07] MEDS: METOPROLOL SUCCINATE 25 MG TAB.SR.24H PO SCH ×2 (09:46→21:48)
[2017-08-07] MEDS: CEFTRIAXONE SODIUM 1,000 MG in NORMAL SALINE 100 ML IV SCH (09:54)
--- NOTE | 2017-08-07 10:47 | EKG REPORT ---
SEVERITY:- ABNORMAL ECG - ATRIAL FIBRILLATION, V-RATE 64-102 RIGHT BUNDLE BRANCH BLOCK INFERIOR INFARCT, OLD LATERAL INFARCT, AGE INDETERMINATE ANTERIOR INFARCT, AGE INDETERMINATE : Confirmed by: Rafi Mendoza 07-Aug-2017 10:46:15
--- NOTE | 2017-08-07 13:41 | PDOC PROGRESS REPORT ---
Subjective Progress Note for:: 08/07/17 Subjective:: The patient is an 81-year-old male who sustained a syncopal episode yesterday while he was getting ready to go to his cardiology appointment. He did in fact drive himself to Dr. Mendoza's office. Dr. Mendoza then sent the patient to the emergency department for further evaluation. During the fall the patient did have a laceration of his scalp and hurt his right ankle. His right ankle is still exquisitely painful today but x-ray does not demonstrate a fracture. However, patient was unable to bear weight yesterday with physical therapy. His breathing is about at baseline while at rest. He still has severe pain in the right ankle this morning. Reason For Visit: HEART FAILURE Physical Exam Vital Signs: Temp Pulse Resp BP Pulse Ox 99.7 F 75 20 120/61 97 08/07/17 11:31 08/07/17 11:31 08/07/17 11:31 08/07/17 11:31 08/07/17 11:31 Intake & Output 08/06/17 08/07/17 08/08/17 05:59 06:59 06:59 Intake Total Output Total Balance Weight Additional comments: Patient is a delightful, elderly, white male. He is obese. His cognition is normal. His facial appearance is unremarkable. His lungs are noted to be clear to auscultation bilaterally. He has an irregularly irregular cardiac rhythm consistent with atrial fibrillation. However, I did not appreciate any murmurs, gallops or rubs. The abdomen is obese but is soft and flat. Bowel sounds are present. He does not have guarding or rebound noted and there are no hernias or masses present. The lower extremities demonstrate 2+ edema. The patient still has tenderness to palpation over the lateral side of the right malleolus. Patient has no acute skin lesions or rashes. Results Laboratory Results: 08/07/17 06:14 08/07/17 06:14 08/07/17 08/07/17 06:14 06:14 WBC 13.5 H RBC 4.30 L Hgb 13.0 L Hct 38.7 MCV 90 MCH 30.2 MCHC 33.6 RDW 15.1 H Plt Count 143 L Seg Neutrophils % 85.0 H Lymphocytes % 5.8 L Monocytes % 8.6 Eosinophils % 0.0 Basophils % 0.6 Absolute Neutrophils 11.5 H Absolute Lymphocytes 0.8 Absolute Monocytes 1.2 Absolute Eosinophils 0.0 Absolute Basophils 0.1 Sodium 136.3 L Potassium 3.3 L Chloride 96 L Carbon Dioxide 26 Anion Gap 14 BUN 45 H Creatinine 1.41 H Est GFR ( Amer) 58 L Est GFR (Non-Af Amer) 48 L Glucose 115 H Calcium 9.1 Impressions: Ankle X-Ray 08/05/17 00:00 IMPRESSION: NEGATIVE STUDY OF THE RIGHT ANKLE. NO RADIOGRAPHIC EVIDENCE OF ACUTE INJURY. Chest X-Ray 08/05/17 14:04 IMPRESSION: CARDIAC ENLARGEMENT. VASCULAR CONGESTION. Head CT 08/05/17 15:04 IMPRESSION: CHRONIC CHANGES OF ATROPHY AND MICROVASCULAR ISCHEMIA. LEFT POSTERIOR SCALP SWELLING/HEMATOMA. NO FRACTURE OR OTHER ACUTE FINDINGS. EVIDENCE OF ACUTE STROKE: NO. Assessment & Plan - Diagnosis (1) Acute and chronic respiratory failure with hypoxia Is this a current diagnosis for this admission?: Yes Plan: Continue supplemental oxygen. (2) Leukocytosis Is this a current diagnosis for this admission?: Yes Plan: For some reason urine culture was canceled. It has been re-ordered. In the interim we will continue ceftriaxone. (3) Syncope and collapse Is this a current diagnosis for this admission?: Yes Plan: Echocardiogram has been ordered. Cardiology consultation has been performed. This is likely multifactorial from medications that can lead to orthostasis, hypoxia, unsteady gait. (4) Trauma Is this a current diagnosis for this admission?: Yes Plan: Patient is not a very good candidate for Coumadin. I am going to continue to hold coumadin until I can clarify R/B with Dr. Mendoza. (5) Acute on chronic diastolic congestive heart failure Is this a current diagnosis for this admission?: Yes Plan: Per cardiology. (6) Diabetes mellitus Qualifiers: Diabetes mellitus type: type 2 Diabetes mellitus complication status: without complication Qualified Code(s): E11.9 - Type 2 diabetes mellitus without complications Is this a current diagnosis for this admission?: Yes Plan: Continue detemir and SSI. (7) Atrial fibrillation and flutter Is this a current diagnosis for this admission?: Yes Plan: Continue rate control agents. Patient is not a good candidate for anticoagulation. (8) CKD (chronic kidney disease), stage III Is this a current diagnosis for this admission?: Yes Plan: Stable. (9) Obstructive sleep apnea Is this a current diagnosis for this admission?: Yes Plan: Continue nightly CPAP. (10) Ankle pain, right Is this a current diagnosis for this admission?: Yes Plan: Continue PT; ankle brace - Time Time Spent with patient: 25-34 minutes - Inpatient Certification Medical Necessity: Significant Comorbidiites Make Outpatient Treatment Too Risky , Need Close Monitoring Due to Risk of Patient Decompensation, Risk of Diagnosis Which Will Require Inpatient Eval/Care/Monitoring
--- NOTE | 2017-08-07 14:50 | PDOC PROGRESS REPORT ---
Subjective Progress Note for:: 08/07/17 Subjective:: Patient claims to be doing well. He is denying any chest, neck discomfort. Patient main complaint was right ankle pain. This was x-rayed and patient tells me that he has a sprain. CT of his head was negative for any internal bleed. Telemetry shows patient maintaining atrial fibrillation. Reason For Visit: HEART FAILURE Physical Exam Vital Signs: Temp Pulse Resp BP Pulse Ox 99.7 F 75 20 120/61 97 08/07/17 11:31 08/07/17 11:31 08/07/17 11:31 08/07/17 11:31 08/07/17 11:31 Intake & Output 08/06/17 08/07/17 08/08/17 05:59 06:59 06:59 Intake Total Output Total Balance Weight Exam: GENERAL: well-nourished and in no acute distress. Alert and oriented x3 HEAD: Atraumatic, normocephalic. EYES: Pupils equal round and reactive to light, extraocular movements intact, sclera anicteric, conjunctiva are normal. ENT: TMs normal, nares patent, oropharynx clear without exudates. Moist mucous membranes. No oral ulcerations or bleeding gums noted NECK: supple without lymphadenopathy. Trachea is central. No cervical or axillary lymphadenopathy noted. Carotids are 2+, JVD WNL LUNGS: Respiration seems nonlabored, no significant accessory muscle action noted. Mild bibasilar crackles and few scattered wheezes rales or rhonchi noted. No significant dullness noted on percussion. CHEST: Palpation of the chest wall shows no significant chest wall tenderness. No other significant abnormalities noted. 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 ABDOMEN: Soft, no significant tenderness appreciated, normoactive bowel sounds. No guarding, no rebound. No rigidity noted . No masses appreciated. EXTREMITIES: Pedal pulses are 1-2+, no calf tenderness noted. No clubbing or cyanosis. 1+ pedal edema noted NEUROLOGICAL: Focused neurological exam showed no significant neurologic deficit. Normal speech, no focal weakness appreciated. PSYCH: Normal mood, normal affect. Judgment and insight within normal limits. SKIN: No significant ecchymosis, skin is noted to be warm. MUSCULOSKELETAL EXAM: No significant acute joint swelling noted. Results Laboratory Results: 08/07/17 06:14 08/07/17 06:14 08/07/17 08/07/17 06:14 06:14 WBC 13.5 H RBC 4.30 L Hgb 13.0 L Hct 38.7 MCV 90 MCH 30.2 MCHC 33.6 RDW 15.1 H Plt Count 143 L Seg Neutrophils % 85.0 H Lymphocytes % 5.8 L Monocytes % 8.6 Eosinophils % 0.0 Basophils % 0.6 Absolute Neutrophils 11.5 H Absolute Lymphocytes 0.8 Absolute Monocytes 1.2 Absolute Eosinophils 0.0 Absolute Basophils 0.1 Sodium 136.3 L Potassium 3.3 L Chloride 96 L Carbon Dioxide 26 Anion Gap 14 BUN 45 H Creatinine 1.41 H Est GFR ( Amer) 58 L Est GFR (Non-Af Amer) 48 L Glucose 115 H Calcium 9.1 Impressions: Ankle X-Ray 08/05/17 00:00 IMPRESSION: NEGATIVE STUDY OF THE RIGHT ANKLE. NO RADIOGRAPHIC EVIDENCE OF ACUTE INJURY. Chest X-Ray 08/05/17 14:04 IMPRESSION: CARDIAC ENLARGEMENT. VASCULAR CONGESTION. Head CT 08/05/17 15:04 IMPRESSION: CHRONIC CHANGES OF ATROPHY AND MICROVASCULAR ISCHEMIA. LEFT POSTERIOR SCALP SWELLING/HEMATOMA. NO FRACTURE OR OTHER ACUTE FINDINGS. EVIDENCE OF ACUTE STROKE: NO. Assessment & Plan - Diagnosis (1) Syncope and collapse Is this a current diagnosis for this admission?: Yes (2) Congestive heart failure (CHF) Qualifiers: Heart failure type: diastolic Heart failure chronicity: acute on chronic Qualified Code(s): I50.33 - Acute on chronic diastolic (congestive) heart failure Is this a current diagnosis for this admission?: Yes (3) Acute and chronic respiratory failure with hypoxia Is this a current diagnosis for this admission?: Yes (4) Diabetes mellitus Qualifiers: Diabetes mellitus type: type 2 Diabetes mellitus complication status: without complication Is this a current diagnosis for this admission?: Yes (5) Dyslipidemia Is this a current diagnosis for this admission?: Yes (6) Hypertension Qualifiers: Hypertension type: essential hypertension Is this a current diagnosis for this admission?: Yes (7) Pulmonary hypertension Is this a current diagnosis for this admission?: Yes (8) Atrial fibrillation Qualifiers: Atrial fibrillation type: paroxysmal Qualified Code(s): I48.0 - Paroxysmal atrial fibrillation Is this a current diagnosis for this admission?: Yes (9) Obstructive sleep apnea Is this a current diagnosis for this admission?: Yes - Notes Notes: Syncope and collapse: Exact etiology not clear. Agree with cardiac monitoring, obtain orthostatic blood pressure recordings. Differential diagnosis includes cardiac dysrhythmia, postural hypotension, hypoglycemia etc. so far no significant cardiac dysrhythmia noted except for atrial fibrillation with somewhat of a rapid ventricular response. Have increased metoprolol succinate to 25 mg p.o. twice daily. Congestive heart failure: Acute on chronic diastolic heart failure. Patient also has a history of severe pulmonary hypertension. We will repeat an echocardiogram. Diabetes: Recommend good control but avoid any hypo-or hyperglycemia. Dyslipidemia: Continue statin therapy. Hypertension: Systemic would consider liberal control in this elderly gentleman. Pulmonary hypertension: Patient has history of severe pulmonary hypertension. Possibly secondary to chronic left heart failure. Will obtain an arterial blood gas and repeat an echocardiogram. Obstructive sleep apnea: Patient will be instructed to bring his CPAP machine and use during this hospitalization. Abnormal urinalysis: Patient currently on antibiotics. Atrial fibrillation: Probably paroxysmal. Continue chronic Coumadin therapy. Today placed on hold because of history of fall. Will talk to patient about switching to a newer anticoagulants. CODE STATUS was discussed, patient remains full code. Surrogate decision-maker unchanged. Multiple medical problems were addressed. More than 50% of the time spent coordinating care, discussing management plans with involved caregivers. Management plans discussed with involved personnels. Medical decision making was of moderate to high complexity, patient's has multiple comorbidities. - Time Time with patient: Greater than 35 minutes - CODE STATUS was discussed, patient remains full code. Surrogate decision-maker unchanged. Multiple medical problems were addressed. More than 50% of the time spent coordinating care, discussing management plans with involved caregivers. Management plans discussed with involved personnels. Medical decision making was of moderate to high complexity, patient's has multiple comorbidities. Medications reviewed and adjusted accordingly: Yes
[2017-08-07 15:34] LABS: INTERNATIONAL RATION (INR) 1.59; PROTHROMBIN TIME 19.9 SEC (11.4-15.4)
[2017-08-07] MEDS: TAMSULOSIN HCL 0.4 MG CAP.SR.24H PO SCH (17:06)
[2017-08-07] MEDS: SIMVASTATIN 10 MG TABLET PO SCH (21:47)
--- NOTE | 2017-08-07 21:48 | EKG REPORT ---
SEVERITY:- ABNORMAL ECG - ATRIAL FIBRILLATION, V-RATE 81-112 RIGHT BUNDLE BRANCH BLOCK INFERIOR INFARCT, AGE INDETERMINATE LATERAL INFARCT, AGE INDETERMINATE ANTERIOR INFARCT, AGE INDETERMINATE : Confirmed by: Rafi Mendoza 07-Aug-2017 21:48:07
[2017-08-07] MEDS: INSULIN DETEMIR 100 UNIT/ML 3 ML PEN SUBCUT SCH (22:01)
[2017-08-08] MEDS: LANSOPRAZOLE 30 MG TAB.RAP.DR PO SCH (05:33)
[2017-08-08 06:59] LABS: ABSOLUTE BASOPHILS # (AUTO) 0.1 10^3/uL (0.0-0.2); ABSOLUTE LYMPHOCYTES (AUTO) 0.9 10^3/uL (0.5-4.7); ABSOLUTE MONOCYTES (AUTO) 1.4 10^3/uL (0.1-1.4); ABSOLUTE NEUT (AUTO) 10.3 10^3/uL (1.7-8.2); BASOPHILS % (AUTO) 0.5 % (0-2); EOSINOPHILS % (AUTO) 0.1 % (0-6); HEMATOCRIT 39.2 % (37.9-51.0); HEMOGLOBIN 13.2 g/dL (13.5-17.0); MEAN CORPUSCULAR HEMOGLOBIN 30.2 pg (27.0-33.4); MEAN CORPUSCULAR HGB CONC 33.6 g/dL (32.0-36.0); MEAN CORPUSCULAR VOLUME 90 fl (80-97); MONOCYTES % (AUTO) 11.4 % (3-13); PLATELET COUNT 155 10^3/uL (150-450); RED BLOOD COUNT 4.36 10^6/uL (4.35-5.55); RED CELL DISTRIBUTION WIDTH 14.7 % (11.5-14.0); TOTAL CELLS COUNTED % (AUTO) 100 %; WHITE BLOOD COUNT 12.7 10^3/uL (4.0-10.5)
[2017-08-08 07:26] LABS: ANION GAP 13 (5-19); BLOOD UREA NITROGEN 46 mg/dL (7-20); CALCIUM 8.8 mg/dL (8.4-10.2); CARBON DIOXIDE 28 mmol/L (22-30); CHLORIDE 95 mmol/L (98-107); GLUCOSE 101 mg/dL (75-110); PHOSPHORUS 3.8 mg/dL (2.5-4.5); POTASSIUM 3.2 mmol/L (3.6-5.0); SODIUM 135.8 mmol/L (137-145)
[2017-08-08] MEDS ORDERED: POTASSIUM CHLORIDE 10 MEQ TABLET.SA PO ONE (08:30)
[2017-08-08] MEDS: FEBUXOSTAT 40 MG TABLET PO SCH (08:45)
[2017-08-08] MEDS ORDERED: FUROSEMIDE 40 MG TABLET PO SCH (08:45)
[2017-08-08] MEDS: ACETAMINOPHEN 325 MG TABLET PO PRN (08:48)
[2017-08-08] MEDS: POTASSIUM CHLORIDE 10 MEQ TABLET.SA PO SCH (08:48)
[2017-08-08] MEDS ORDERED: TRAMADOL HCL 50 MG TABLET PO PRN (10:00)
[2017-08-08] MEDS: FUROSEMIDE 80 MG TABLET PO SCH (11:15)
[2017-08-08] MEDS: CEFTRIAXONE SODIUM 1,000 MG in NORMAL SALINE 100 ML IV SCH (11:16)
[2017-08-08] MEDS: LOSARTAN POTASSIUM 50 MG TABLET PO SCH (11:16)
[2017-08-08] MEDS: METOPROLOL SUCCINATE 25 MG TAB.SR.24H PO SCH ×2 (11:16→22:09)
--- NOTE | 2017-08-08 12:04 | RADIOLOGY REPORT (SQ) ---
EXAM DESCRIPTION: CAROTID DOPPLER COMPLETED DATE/TIME: 08/08/2017 11:36 am REASON FOR STUDY: syncope COMPARISON: None. TECHNIQUE: Grayscale ultrasound, Doppler velocity and spectra, and color Doppler images acquired of the extra-cranial carotid and vertebral arteries. Images stored on PACS. LIMITATIONS: None. FINDINGS: RIGHT CAROTID CCA Velocities: Within normal limits. ICA Velocities Peak systolic 0.57 m/s. End diastolic 0.12 m/s. Proximal ICA/CCA peak systolic ratio 0.8. Spectra normal. No significant plaque. LEFT CAROTID CCA Velocities: Within normal limits. ICA Velocities Peak systolic 1.57 m/s. End diastolic 0.22 m/s. Proximal ICA/CCA peak systolic ratio 1.6. Spectra normal. No significant plaque. VERTEBRAL ARTERIES: Antegrade flow. Normal waveforms. SUBCLAVIAN ARTERIES: No finding. OTHER: No other significant finding. IMPRESSION: NO HEMODYNAMICALLY SIGNIFICANT STENOSIS. COMMENT: Quality ID #[id number]: Velocity criteria are extrapolated from the diameter data as defined by t he Society of Radiologists in Ultrasound Consensus Conference. Radiology 2003: 229; 340-346. TECHNICAL DOCUMENTATION: JOB ID: [id number] [employer]- All Rights Reserved Reading location - IP/workstation name: [email or web address]
[2017-08-08] MEDS: INSULIN LISPRO 100 UNIT/ML 3 ML VIAL SUBCUT PRN ×3 (13:24→22:10)
[2017-08-08 15:15] LABS: INTERNATIONAL RATION (INR) 1.44; PROTHROMBIN TIME 18.4 SEC (11.4-15.4)
--- NOTE | 2017-08-08 16:08 | PDOC PROGRESS REPORT ---
Subjective Progress Note for:: 08/08/17 Subjective:: The patient is an 81-year-old male with a past medical history of atrial fibrillation on Coumadin, CKD, hypoxic respiratory failure on oxygen, gait dysfunction, BPH, obstructive sleep apnea, CHF who was admitted on 08/05/17 after syncopal event. The patient does admit that he did not take his Lasix that day and also that he was not on his prescribed oxygen at the time of fall as he had placed the oxygen inside his car and was returning to the home to ensure that the door was locked. The patient is seen on morning rounds. He is found resting in bed comfortably on 3 L/min via nasal cannula. He states that he is having back pain and severe right ankle pain related to his fall. He has not been ambulatory secondary to the ankle pain. In fact, he declined to work with physical therapy yesterday due to the pain. Per nursing, the patient declined Tylenol yesterday, but he is agreeable today to the pain medication. The patient reports that he has both a cane and a walker at home. His goal is to return to home at discharge. He states that aside from the pain related to the fall, he is feeling in his usual state of health. He has no other questions or concerns today. Reason For Visit: HEART FAILURE Physical Exam Vital Signs: Temp Pulse Resp BP Pulse Ox 97.6 F 87 18 103/66 94 08/08/17 11:34 08/08/17 11:34 08/08/17 11:34 08/08/17 11:34 08/08/17 11:34 Intake & Output 08/07/17 08/08/17 08/09/17 06:59 06:59 06:59 Intake Total 820 Output Total 300 Balance 520 Weight 75.6 kg General appearance: PRESENT: no acute distress, cooperative, well-developed, well-nourished, other - Overweight Head exam: PRESENT: normocephalic. ABSENT: atraumatic - Ecchymosis and edema to the left posterior scalp; slight abrasion noted. No active bleeding. Eye exam: PRESENT: conjunctiva pink, EOMI, PERRLA. ABSENT: scleral icterus Ear exam: PRESENT: normal external ear exam Mouth exam: PRESENT: moist, tongue midline Neck exam: ABSENT: carotid bruit, JVD, lymphadenopathy, thyromegaly Respiratory exam: PRESENT: clear to auscultation clare, symmetrical, unlabored. ABSENT: rales, rhonchi, wheezes Cardiovascular exam: PRESENT: RRR, +S1, +S2. ABSENT: diastolic murmur, rubs, systolic murmur Pulses: PRESENT: normal dorsalis pedis pul Vascular exam: PRESENT: normal capillary refill GI/Abdominal exam: PRESENT: normal bowel sounds, soft. ABSENT: distended, guarding, mass, organolmegaly, rebound, tenderness Rectal exam: PRESENT: deferred Extremities exam: PRESENT: tenderness - Right ankle, +1 edema. ABSENT: calf tenderness, clubbing, full ROM - Right ankle; limited secondary to pain, pedal edema Neurological exam: PRESENT: alert, awake, oriented to person, oriented to place , oriented to time, oriented to situation, CN II-XII grossly intact. ABSENT: motor sensory deficit Psychiatric exam: PRESENT: appropriate affect, normal mood. ABSENT: homicidal ideation, suicidal ideation Skin exam: PRESENT: dry, intact, warm. ABSENT: cyanosis, rash Results Laboratory Results: 08/08/17 06:28 08/08/17 06:28 08/08/17 08/08/17 06:28 06:28 WBC 12.7 H RBC 4.36 Hgb 13.2 L Hct 39.2 MCV 90 MCH 30.2 MCHC 33.6 RDW 14.7 H Plt Count 155 Seg Neutrophils % 81.0 H Lymphocytes % 7.0 L Monocytes % 11.4 Eosinophils % 0.1 Basophils % 0.5 Absolute Neutrophils 10.3 H Absolute Lymphocytes 0.9 Absolute Monocytes 1.4 Absolute Eosinophils 0.0 Absolute Basophils 0.1 Sodium 135.8 L Potassium 3.2 L Chloride 95 L Carbon Dioxide 28 Anion Gap 13 BUN 46 H Creatinine 1.48 H Est GFR ( Amer) 55 L Est GFR (Non-Af Amer) 45 L Glucose 101 Calcium 8.8 Phosphorus 3.8 Magnesium 1.7 08/06/17 14:49 Clean Catch Midstream Urine Culture - Final Urogenital Johnny 08/05/17 17:00 Clean Catch Midstream Urine Culture - Final Mixed Urogenital Johnny Impressions: Ankle X-Ray 08/05/17 00:00 IMPRESSION: NEGATIVE STUDY OF THE RIGHT ANKLE. NO RADIOGRAPHIC EVIDENCE OF ACUTE INJURY. Chest X-Ray 08/05/17 14:04 IMPRESSION: CARDIAC ENLARGEMENT. VASCULAR CONGESTION. Head CT 08/05/17 15:04 IMPRESSION: CHRONIC CHANGES OF ATROPHY AND MICROVASCULAR ISCHEMIA. LEFT POSTERIOR SCALP SWELLING/HEMATOMA. NO FRACTURE OR OTHER ACUTE FINDINGS. EVIDENCE OF ACUTE STROKE: NO. Carotid Doppler Study 08/08/17 00:00 IMPRESSION: NO HEMODYNAMICALLY SIGNIFICANT STENOSIS. Assessment & Plan - Diagnosis (1) Acute and chronic respiratory failure with hypoxia Is this a current diagnosis for this admission?: Yes Plan: Improved; he is on his baseline oxygen requirement of 2 L/min while awake and 3 L/min while sleeping. (2) Ankle pain, right Qualifiers: Chronicity: acute Qualified Code(s): M25.571 - Pain in right ankle and joints of right foot Is this a current diagnosis for this admission?: Yes Plan: Related to fall. X-ray does not demonstrate evidence of an acute injury. Continue Tylenol with tramadol for breakthrough pain. A Velcro air splint has been placed. Elevate and ice the extremity as needed. PT/OT evaluation has been ordered. (3) Leukocytosis Is this a current diagnosis for this admission?: Yes Plan: Secondary to UTI. Possibly reactionary secondary to syncopal event with scalp hematoma and right ankle injury. WBCs are trending down. Patient is afebrile. Urine culture: Normal urogenital johnny. Continue Rocephin. (4) Syncope and collapse Is this a current diagnosis for this admission?: Yes Plan: Likely multifactorial secondary to hypoxia as the patient confirms that he had been off his oxygen while ambulatory for a period of time prior to his fall. Carotid Doppler: No hemodynamically significant stenosis Echocardiogram is pending Cardiology has been consulted; appreciate their evaluation recommendations. PT/OT evaluation has been ordered. (5) Trauma Is this a current diagnosis for this admission?: Yes Plan: Secondary to syncope and LOC for an unknown period of time on concrete. The patient presented with a posterior scalp hematoma and abrasion and right ankle pain. The patient is not a good candidate for Coumadin. We will defer chronic anticoagulation recommendations to cardiology. (6) Acute on chronic diastolic congestive heart failure Is this a current diagnosis for this admission?: Yes Plan: Improved following diuresis with IV furosemide. ProBNP on admission is elevated to greater than 5000. Troponin was negative. Echocardiogram is pending We will transition to p.o. furosemide today. Audiology has been consulted to medical and appreciate their evaluation and recommendations. (7) Diabetes mellitus Qualifiers: Diabetes mellitus type: type 2 Diabetes mellitus complication status: without complication Is this a current diagnosis for this admission?: Yes Plan: The patient has been placed on a consistent carb diet. We will continue the patient's home dose Levemir 30 units nightly. Accu-Cheks before meals and at bedtime with Humalog for sliding scale coverage. (8) Atrial fibrillation and flutter Is this a current diagnosis for this admission?: Yes Plan: The patient's rate control agents are continued. He is not considered a good candidate for chronic anticoagulation secondary to syncope with injury. Etiology has been consulted; appreciate their evaluation recommendations. (9) CKD (chronic kidney disease), stage III Is this a current diagnosis for this admission?: Yes Plan: At baseline. Will avoid nephrotoxic medications. (10) Obstructive sleep apnea Is this a current diagnosis for this admission?: Yes Plan: Continue supplemental oxygen to maintain oxygen saturations greater than 88% while sleeping. BiPAP nightly. - Time Time Spent with patient: 25-34 minutes Medications reviewed and adjusted accordingly: Yes Anticipated discharge: Home with Homehealth
[2017-08-08] MEDS: TAMSULOSIN HCL 0.4 MG CAP.SR.24H PO SCH (18:58)
[2017-08-08] MEDS: APIXABAN 2.5 MG TABLET PO SCH (18:59)
--- NOTE | 2017-08-08 19:22 | XCELERA REPORT ---
[address] [address] Transthoracic Echocardiogram Report Name: CHAO VERMA Age: 81 yrs Gender: Male : 1935 Patient Status: Inpatient Patient Location: [address] [place] [address] Study Date: 08/08/2017 09:25 AM Height: 65 in Weight: 183 lb BSA: 1.9 m2 Procedure: A complete two-dimensional transthoracic echocardiogram was performed (2D, M-mode, spectral and color flow Doppler). The study was technically adequate with some images being suboptimal in quality. Reason For Study: syncope Ordering Physician: LOUIE COOK Performed By: Tara Shay Interpretation Summary Left ventricular systolic function is low normal. There is mild concentric left ventricular hypertrophy. The left ventricle is grossly normal size. Doppler measurements suggest pseudonormalized left ventricular relaxation, which is associated with grade II/IV or mild to moderate diastolic dysfunction Wall motion cannot be accurately commented on, but no definite regional wall motion abnormalities noted. The right ventricle appears to be hypertrophied The right ventricle is moderately dilated. The right ventricular systolic function is moderately reduced. The right atrium is moderately dilated. The left atrial size is normal. There is a mild amount of mitral regurgitation No aortic regurgitation is present. There is no aortic valve stenosis There is a mild amount of tricuspid regurgitation There is servere pulmonary hypertension by echo Right ventricular systolic pressure is estimated to be elevated at >60mmHg. The aortic root is not well visualized but is probably normal size. The inferior vena cava appeared normal and decreased < 50% with respiration (RAP 10-15 mmHg) There is no pericardial effusion. MMode/2D Measurements & Calculations RVDd: 3.7 cm LVIDd: 5.1 cm FS: 30.8 % Ao root diam: 3.6 cm IVSd: 0.96 cm LVIDs: 3.5 cm EDV(Teich): 121.4 ml LVPWd: 0.95 cm ESV(Teich): 50.9 ml Ao root area: 10.3 cm2 EF(Teich): 58.1 % LVOT diam: 2.2 cm LVOT area: 3.8 cm2 Doppler Measurements & Calculations MV E max lora: MV dec slope: Ao V2 max: LV V1 max P.4 cm/sec 620.0 cm/sec2 179.8 cm/sec 4.1 mmHg MV dec time: Ao max PG: LV V1 max: 0.22 sec 12.9 mmHg 101.1 cm/sec JUAN CARLOS(V,D): 2.1 cm2 PA V2 max: TR max lora: 73.7 cm/sec 396.5 cm/sec PA max P.2 mmHgTR max P.2 mmHg Left Ventricle The left ventricle is grossly normal size. There is mild concentric left ventricular hypertrophy. Left ventricular systolic function is low normal. Doppler measurements suggest pseudonormalized left ventricular relaxation, which is associated with grade II/IV or mild to moderate diastolic dysfunction. Wall motion cannot be accurately commented on, but no definite regional wall motion abnormalities noted. Right Ventricle The right ventricle is moderately dilated. The right ventricle appears to be hypertrophied. The right ventricular systolic function is moderately reduced. Atria The right atrium is moderately dilated. The left atrial size is normal. Interarterial septum not well visualized and not well dopplered. Cannot comment on ASD/PFO presence. Mitral Valve The mitral valve is grossly normal. There is no mitral valve stenosis. There is a mild amount of mitral regurgitation. Aortic Valve The aortic valve is grossly normal. There is no aortic valve stenosis. No aortic regurgitation is present. Tricuspid Valve The tricuspid valve is not well visualized, but is grossly normal. There is no tricuspid stenosis. There is a mild amount of tricuspid regurgitation. There is servere pulmonary hypertension by echo. Right ventricular systolic pressure is estimated to be elevated at >60mmHg. Pulmonic Valve The pulmonic valve is not well visualized. Great Vessels The aortic root is not well visualized but is probably normal size. The inferior vena cava appeared normal and decreased < 50% with respiration (RAP 10-15 mmHg). Effusions There is no pericardial effusion. : LOUIE COOK > Rafi Mendoza
--- NOTE | 2017-08-08 20:30 | PDOC PROGRESS REPORT ---
Subjective Progress Note for:: 08/08/17 Subjective:: Patient claims to be doing well. He is denying any chest, neck discomfort. Patient main complaint was right ankle pain. This was x-rayed and patient tells me that he has a sprain. CT of his head was negative for any internal bleed. Currently patient complains his back pain and right ankle pain. Today I discussed anticoagulation therapy for his atrial fibrillation. It was felt that chronic Coumadin therapy will be somewhat risky in view of fall and increased risk of intracranial hemorrhage in the elderly. We therefore talked about switching him to newer anticoagulants. Patient is agreeable to try Eliquis at 2.5 mg p.o. twice daily. Telemetry shows patient maintaining atrial fibrillation. Reason For Visit: HEART FAILURE Physical Exam Vital Signs: Temp Pulse Resp BP Pulse Ox 97.7 F 82 17 97/63 L 88 L 08/08/17 16:07 08/08/17 16:07 08/08/17 14:53 08/08/17 16:07 08/08/17 16:07 Intake & Output 08/07/17 08/08/17 08/09/17 06:59 06:59 06:59 Intake Total 820 592 Output Total 300 Balance 520 592 Weight 75.6 kg Exam: GENERAL: well-nourished and in no acute distress. Alert and oriented x3 HEAD: Atraumatic, normocephalic. EYES: Pupils equal round and reactive to light, extraocular movements intact, sclera anicteric, conjunctiva are normal. ENT: TMs normal, nares patent, oropharynx clear without exudates. Moist mucous membranes. No oral ulcerations or bleeding gums noted NECK: supple without lymphadenopathy. Trachea is central. No cervical or axillary lymphadenopathy noted. Carotids are 2+, JVD WNL LUNGS: Respiration seems nonlabored, no significant accessory muscle action noted. Bilateral fine crackles at bases and scattered wheezes rales or rhonchi noted. No significant dullness noted on percussion. CHEST: Palpation of the chest wall shows no significant chest wall tenderness. No other significant abnormalities noted. HEART: [place] [employer], No PSH, 1/6 TIM aortic area, 1/6 birch systolic murmur mitral area, no rubs, no gallops. ABDOMEN: Soft, no significant tenderness appreciated, normoactive bowel sounds. No guarding, no rebound. No rigidity noted . No masses appreciated. EXTREMITIES: Pedal pulses are 1-2+, no calf tenderness noted. No clubbing or cyanosis.trace to 1+ pedal edema noted NEUROLOGICAL: Focused neurological exam showed no significant neurologic deficit. Normal speech, no focal weakness appreciated. PSYCH: Normal mood, normal affect. Judgment and insight within normal limits. SKIN: No significant ecchymosis, skin is noted to be warm. MUSCULOSKELETAL EXAM: No significant acute joint swelling noted. Results Laboratory Results: 08/08/17 06:28 08/08/17 06:28 08/08/17 08/08/17 06:28 06:28 WBC 12.7 H RBC 4.36 Hgb 13.2 L Hct 39.2 MCV 90 MCH 30.2 MCHC 33.6 RDW 14.7 H Plt Count 155 Seg Neutrophils % 81.0 H Lymphocytes % 7.0 L Monocytes % 11.4 Eosinophils % 0.1 Basophils % 0.5 Absolute Neutrophils 10.3 H Absolute Lymphocytes 0.9 Absolute Monocytes 1.4 Absolute Eosinophils 0.0 Absolute Basophils 0.1 Sodium 135.8 L Potassium 3.2 L Chloride 95 L Carbon Dioxide 28 Anion Gap 13 BUN 46 H Creatinine 1.48 H Est GFR ( Amer) 55 L Est GFR (Non-Af Amer) 45 L Glucose 101 Calcium 8.8 Phosphorus 3.8 Magnesium 1.7 08/06/17 14:49 Clean Catch Midstream Urine Culture - Final Urogenital Nesha 08/05/17 17:00 Clean Catch Midstream Urine Culture - Final Mixed Urogenital Nesha EKG Comments: Telemetry shows atrial fibrillation with slightly increased heart rate response. Impressions: Ankle X-Ray 08/05/17 00:00 IMPRESSION: NEGATIVE STUDY OF THE RIGHT ANKLE. NO RADIOGRAPHIC EVIDENCE OF ACUTE INJURY. Chest X-Ray 08/05/17 14:04 IMPRESSION: CARDIAC ENLARGEMENT. VASCULAR CONGESTION. Head CT 08/05/17 15:04 IMPRESSION: CHRONIC CHANGES OF ATROPHY AND MICROVASCULAR ISCHEMIA. LEFT POSTERIOR SCALP SWELLING/HEMATOMA. NO FRACTURE OR OTHER ACUTE FINDINGS. EVIDENCE OF ACUTE STROKE: NO. Carotid Doppler Study 08/08/17 00:00 IMPRESSION: NO HEMODYNAMICALLY SIGNIFICANT STENOSIS. Assessment & Plan - Diagnosis (1) Syncope and collapse Is this a current diagnosis for this admission?: Yes (2) Congestive heart failure (CHF) Qualifiers: Heart failure type: diastolic Heart failure chronicity: acute on chronic Qualified Code(s): I50.33 - Acute on chronic diastolic (congestive) heart failure Is this a current diagnosis for this admission?: Yes (3) Acute and chronic respiratory failure with hypoxia Is this a current diagnosis for this admission?: Yes (4) Diabetes mellitus Qualifiers: Diabetes mellitus type: type 2 Diabetes mellitus complication status: without complication Is this a current diagnosis for this admission?: Yes (5) Dyslipidemia Is this a current diagnosis for this admission?: Yes (6) Hypertension Qualifiers: Hypertension type: essential hypertension Is this a current diagnosis for this admission?: Yes (7) Pulmonary hypertension Is this a current diagnosis for this admission?: Yes (8) Atrial fibrillation Qualifiers: Atrial fibrillation type: paroxysmal Qualified Code(s): I48.0 - Paroxysmal atrial fibrillation Is this a current diagnosis for this admission?: Yes (9) Obstructive sleep apnea Is this a current diagnosis for this admission?: Yes - Notes Notes: Syncope and collapse: Exact etiology not clear. Differential diagnosis includes cardiac dysrhythmia, postural hypotension, hypoglycemia etc. so far no significant cardiac dysrhythmia noted except for atrial fibrillation with somewhat of a rapid ventricular response. Have increased metoprolol succinate to 25 mg p.o. twice daily. Heart rate seemed to be coming under better control. Congestive heart failure: Acute on chronic diastolic heart failure. Patient also has a history of severe pulmonary hypertension. Echocardiogram shows severe pulmonary hypertension with significant RV systolic dysfunction. Continue with diuretic therapy. Diabetes: Recommend good control but avoid any hypo-or hyperglycemia. Dyslipidemia: Continue statin therapy. Hypertension: Systemic would consider liberal control in this elderly gentleman. Pulmonary hypertension: Patient has history of severe pulmonary hypertension. Possibly secondary to chronic left heart failure. Will obtain an arterial blood gas. Obstructive sleep apnea: Patient will be instructed to bring his CPAP machine and use during this hospitalization. Patient advised compliance with CPAP machine and chronic oxygen supplementation. Abnormal urinalysis: Patient currently on antibiotics. Atrial fibrillation: Probably paroxysmal. Handwritten orders were entered in the chart for patient to be started on Eliquis 2.5 mg p.o. twice daily if his PT with INR less than 2.0. - Time Time with patient: 15-25 minutes - CODE STATUS was discussed, patient remains full code. Surrogate decision-maker unchanged. Multiple medical problems were addressed. More than 50% of the time spent coordinating care, discussing management plans with involved caregivers. Management plans discussed with involved personnels. Medical decision making was of moderate to high complexity , patient's has multiple comorbidities. Medications reviewed and adjusted accordingly: Yes
[2017-08-08] MEDS: SIMVASTATIN 10 MG TABLET PO SCH (22:09)
[2017-08-08] MEDS: INSULIN DETEMIR 100 UNIT/ML 3 ML PEN SUBCUT SCH (22:09)
[2017-08-09 05:07] LABS: ABSOLUTE BASOPHILS # (AUTO) 0.1 10^3/uL (0.0-0.2); ABSOLUTE EOSINOPHILS # (AUTO) 0.1 10^3/uL (0.0-0.6); ABSOLUTE LYMPHOCYTES (AUTO) 0.9 10^3/uL (0.5-4.7); ABSOLUTE MONOCYTES (AUTO) 1.1 10^3/uL (0.1-1.4); ABSOLUTE NEUT (AUTO) 7.9 10^3/uL (1.7-8.2); BASOPHILS % (AUTO) 0.7 % (0-2); EOSINOPHILS % (AUTO) 0.7 % (0-6); HEMATOCRIT 37.2 % (37.9-51.0); HEMOGLOBIN 12.7 g/dL (13.5-17.0); MEAN CORPUSCULAR HEMOGLOBIN 30.6 pg (27.0-33.4); MEAN CORPUSCULAR VOLUME 90 fl (80-97); MONOCYTES % (AUTO) 10.7 % (3-13); PLATELET COUNT 169 10^3/uL (150-450); RED BLOOD COUNT 4.13 10^6/uL (4.35-5.55); RED CELL DISTRIBUTION WIDTH 14.8 % (11.5-14.0); SEGMENTED NEUTROPHILS % (AUTO) 78.9 % (42-78); TOTAL CELLS COUNTED % (AUTO) 100 %
[2017-08-09] MEDS: LANSOPRAZOLE 30 MG TAB.RAP.DR PO SCH (05:30)
[2017-08-09 05:33] LABS: ANION GAP 12 (5-19); BLOOD UREA NITROGEN 60 mg/dL (7-20); CALCIUM 8.6 mg/dL (8.4-10.2); CARBON DIOXIDE 29 mmol/L (22-30); CHLORIDE 95 mmol/L (98-107); GLUCOSE 91 mg/dL (75-110); POTASSIUM 3.6 mmol/L (3.6-5.0); SODIUM 136.3 mmol/L (137-145)
[2017-08-09] MEDS: CEFTRIAXONE SODIUM 1,000 MG in NORMAL SALINE 100 ML IV SCH (10:01)
[2017-08-09] MEDS: METOPROLOL SUCCINATE 25 MG TAB.SR.24H PO SCH (10:01)
[2017-08-09] MEDS: FUROSEMIDE 80 MG TABLET PO SCH (10:01)
[2017-08-09] MEDS: APIXABAN 2.5 MG TABLET PO SCH ×2 (10:02→18:01)
[2017-08-09] MEDS: LOSARTAN POTASSIUM 50 MG TABLET PO SCH (12:19)
[2017-08-09 15:23] LABS: INTERNATIONAL RATION (INR) 1.58; PROTHROMBIN TIME 19.8 SEC (11.4-15.4)
[2017-08-09] MEDS: INSULIN LISPRO 100 UNIT/ML 3 ML VIAL SUBCUT PRN (17:59)
[2017-08-09] MEDS: TAMSULOSIN HCL 0.4 MG CAP.SR.24H PO SCH (18:01)
--- NOTE | 2017-08-09 19:54 | PDOC PROGRESS REPORT ---
Subjective Progress Note for:: 08/09/17 Subjective:: Patient claims to be doing well. He is denying any chest, neck discomfort. Currently denying any significant symptoms. Has some shortness of breath on exertion. Patient claims that he has not seen a gse mechanic in quite some time. Therefore have written a consultation for Dr. Jessica whom he claims may have seen in the past. Patient was started on Eliquis at 2.5 mg p.o. twice daily yesterday which seems to be right dose in view of patient's age and stage III renal dysfunction.. Telemetry shows patient maintaining atrial fibrillation. Reason For Visit: HEART FAILURE Physical Exam Vital Signs: Temp Pulse Resp BP Pulse Ox 99.2 F 93 18 115/63 96 08/09/17 16:10 08/09/17 16:10 08/09/17 16:10 08/09/17 16:10 08/09/17 16:10 Intake & Output 08/08/17 08/09/17 08/10/17 06:59 06:59 06:59 Intake Total 820 1352 621 Output Total 300 Balance 520 1352 621 Weight 75.6 kg 75.3 kg Exam: GENERAL: well-nourished and in no acute distress. Alert and oriented x3 HEAD: Atraumatic, normocephalic. EYES: Pupils equal round and reactive to light, extraocular movements intact, sclera anicteric, conjunctiva are normal. ENT: TMs normal, nares patent, oropharynx clear without exudates. Moist mucous membranes. No oral ulcerations or bleeding gums noted NECK: supple without lymphadenopathy. Trachea is central. No cervical or axillary lymphadenopathy noted. Carotids are 2+, JVD WNL LUNGS: Respiration seems nonlabored, no significant accessory muscle action noted. Bilateral scattered wheezes rales or rhonchi noted. No significant dullness noted on percussion. CHEST: Palpation of the chest wall shows no significant chest wall tenderness. No other significant abnormalities noted. HEART: [place] CARGOMAN, No PSH, 1/6 TIM aortic area, 1/6 birch systolic murmur mitral area, no rubs, no gallops. ABDOMEN: Soft, no significant tenderness appreciated, normoactive bowel sounds. No guarding, no rebound. No rigidity noted . No masses appreciated. EXTREMITIES: Pedal pulses are 1-2+, no calf tenderness noted. No clubbing or cyanosis. 1+ pedal edema noted NEUROLOGICAL: Focused neurological exam showed no significant neurologic deficit. Normal speech, no focal weakness appreciated. PSYCH: Normal mood, normal affect. Judgment and insight within normal limits. SKIN: No significant ecchymosis, skin is noted to be warm. MUSCULOSKELETAL EXAM: No significant acute joint swelling noted. Results Laboratory Results: 08/09/17 03:58 08/09/17 03:58 08/09/17 08/09/17 03:58 03:58 WBC 10.0 RBC 4.13 L Hgb 12.7 L Hct 37.2 L MCV 90 MCH 30.6 MCHC 34.0 RDW 14.8 H Plt Count 169 Seg Neutrophils % 78.9 H Lymphocytes % 9.0 L Monocytes % 10.7 Eosinophils % 0.7 Basophils % 0.7 Absolute Neutrophils 7.9 Absolute Lymphocytes 0.9 Absolute Monocytes 1.1 Absolute Eosinophils 0.1 Absolute Basophils 0.1 Sodium 136.3 L Potassium 3.6 Chloride 95 L Carbon Dioxide 29 Anion Gap 12 BUN 60 H Creatinine 1.49 H Est GFR ( Amer) 54 L Est GFR (Non-Af Amer) 45 L Glucose 91 Calcium 8.6 Magnesium 2.1 Impressions: Ankle X-Ray 08/05/17 00:00 IMPRESSION: NEGATIVE STUDY OF THE RIGHT ANKLE. NO RADIOGRAPHIC EVIDENCE OF ACUTE INJURY. Chest X-Ray 08/05/17 14:04 IMPRESSION: CARDIAC ENLARGEMENT. VASCULAR CONGESTION. Head CT 08/05/17 15:04 IMPRESSION: CHRONIC CHANGES OF ATROPHY AND MICROVASCULAR ISCHEMIA. LEFT POSTERIOR SCALP SWELLING/HEMATOMA. NO FRACTURE OR OTHER ACUTE FINDINGS. EVIDENCE OF ACUTE STROKE: NO. Carotid Doppler Study 08/08/17 00:00 IMPRESSION: NO HEMODYNAMICALLY SIGNIFICANT STENOSIS. Assessment & Plan - Diagnosis (1) Syncope and collapse Is this a current diagnosis for this admission?: Yes (2) Congestive heart failure (CHF) Qualifiers: Heart failure type: diastolic Heart failure chronicity: acute on chronic Qualified Code(s): I50.33 - Acute on chronic diastolic (congestive) heart failure Is this a current diagnosis for this admission?: Yes (3) Acute and chronic respiratory failure with hypoxia Is this a current diagnosis for this admission?: Yes (4) Diabetes mellitus Qualifiers: Diabetes mellitus type: type 2 Diabetes mellitus complication status: without complication Is this a current diagnosis for this admission?: Yes (5) Dyslipidemia Is this a current diagnosis for this admission?: Yes (6) Hypertension Qualifiers: Hypertension type: essential hypertension Is this a current diagnosis for this admission?: Yes (7) Pulmonary hypertension Is this a current diagnosis for this admission?: Yes (8) Atrial fibrillation Qualifiers: Atrial fibrillation type: paroxysmal Qualified Code(s): I48.0 - Paroxysmal atrial fibrillation Is this a current diagnosis for this admission?: Yes (9) Obstructive sleep apnea Is this a current diagnosis for this admission?: Yes - Notes Notes: Syncope and collapse: No further recurrence of syncope or near syncope while in the hospital. Exact etiology not clear. Differential diagnosis includes cardiac dysrhythmia, postural hypotension, hypoglycemia etc. so far no significant cardiac dysrhythmia noted except for atrial fibrillation with somewhat of a rapid ventricular response. Have increased metoprolol succinate to 25 mg p.o. twice daily. Heart rate seemed to be coming under better control. Congestive heart failure: Acute on chronic diastolic heart failure. Patient also has a history of severe pulmonary hypertension. Echocardiogram shows severe pulmonary hypertension with significant RV systolic dysfunction. Continue with diuretic therapy. Currently is stable. No volume overload noted on today's exam. Diabetes: Recommend good control but avoid any hypo-or hyperglycemia. Dyslipidemia: Continue statin therapy. Hypertension: Systemic would consider liberal control in this elderly gentleman. Pulmonary hypertension: Patient has history of severe pulmonary hypertension. Possibly secondary to chronic left heart failure. Will obtain an arterial blood gas. Obstructive sleep apnea: Patient will be instructed to bring his CPAP machine and use during this hospitalization. Patient advised compliance with CPAP machine and chronic oxygen supplementation. Abnormal urinalysis: Patient currently on antibiotics. Atrial fibrillation: Chronic based on chart review. Patient was started on Eliquis 2.5 mg p.o. twice daily. Continue with this dose. - Time Time with patient: 15-25 minutes - CODE STATUS was discussed, patient remains full code. Surrogate decision-maker unchanged. Multiple medical problems were addressed. More than 50% of the time spent coordinating care, discussing management plans with involved caregivers. Management plans discussed with involved personnels. Medical decision making was of moderate to high complexity , patient's has multiple comorbidities.. Patient seems to be on a stable regimen. Medications reviewed and adjusted accordingly: Yes
[2017-08-09] MEDS: SIMVASTATIN 10 MG TABLET PO SCH (22:04)
[2017-08-09] MEDS: INSULIN DETEMIR 100 UNIT/ML 3 ML PEN SUBCUT SCH (22:04)
[2017-08-10] MEDS: METOPROLOL SUCCINATE 25 MG TAB.SR.24H PO SCH ×3 (00:05→21:40)
[2017-08-10 04:58] LABS: ABSOLUTE BASOPHILS # (AUTO) 0.1 10^3/uL (0.0-0.2); ABSOLUTE EOSINOPHILS # (AUTO) 0.1 10^3/uL (0.0-0.6); ABSOLUTE LYMPHOCYTES (AUTO) 0.8 10^3/uL (0.5-4.7); ABSOLUTE NEUT (AUTO) 6.7 10^3/uL (1.7-8.2); EOSINOPHILS % (AUTO) 1.7 % (0-6); HEMATOCRIT 37.8 % (37.9-51.0); HEMOGLOBIN 12.7 g/dL (13.5-17.0); LYMPHOCYTES % (AUTO) 9.6 % (13-45); MEAN CORPUSCULAR HEMOGLOBIN 30.2 pg (27.0-33.4); MEAN CORPUSCULAR HGB CONC 33.5 g/dL (32.0-36.0); MEAN CORPUSCULAR VOLUME 90 fl (80-97); PLATELET COUNT 181 10^3/uL (150-450); RED CELL DISTRIBUTION WIDTH 14.4 % (11.5-14.0); SEGMENTED NEUTROPHILS % (AUTO) 76.7 % (42-78); TOTAL CELLS COUNTED % (AUTO) 100 %; WHITE BLOOD COUNT 8.8 10^3/uL (4.0-10.5)
[2017-08-10 05:13] LABS: ANION GAP 10 (5-19); CALCIUM 8.6 mg/dL (8.4-10.2); CARBON DIOXIDE 29 mmol/L (22-30); CHLORIDE 97 mmol/L (98-107); GLUCOSE 117 mg/dL (75-110); POTASSIUM 3.3 mmol/L (3.6-5.0); SODIUM 136.4 mmol/L (137-145)
[2017-08-10 05:14] LABS: BLOOD UREA NITROGEN 71 mg/dL (7-20)
[2017-08-10] MEDS: LANSOPRAZOLE 30 MG TAB.RAP.DR PO SCH (05:50)
--- NOTE | 2017-08-10 08:05 | PDOC PROGRESS REPORT ---
Subjective Progress Note for:: 08/10/17 Subjective:: The patient is resting in his bed. Physical therapy came and saw the patient and he was a maximum assist and could not bear weight on his ankle. I discussed this with him and he is agreeable to a subacute rehabilitation stay. The discharge planners have been consulted. Otherwise he states he feels weak. He denies fever chills. No chest pain, shortness of breath or cough. No nausea, vomiting or diarrhea. No urinary complaints. Reason For Visit: HEART FAILURE Physical Exam Vital Signs: Temp Pulse Resp BP Pulse Ox 98.0 F 78 16 114/67 98 08/10/17 03:36 08/10/17 03:36 08/10/17 03:53 08/10/17 03:36 08/10/17 03:53 Intake & Output 08/09/17 08/10/17 08/11/17 06:59 06:59 06:59 Intake Total 1352 1202 Balance 1352 1202 Weight 75.3 kg 75.3 kg General appearance: PRESENT: no acute distress, well-developed, well-nourished Head exam: PRESENT: atraumatic, normocephalic Mouth exam: PRESENT: moist, tongue midline Neck exam: ABSENT: carotid bruit, JVD, lymphadenopathy, thyromegaly Respiratory exam: PRESENT: clear to auscultation clare. ABSENT: rales, rhonchi, wheezes Cardiovascular exam: PRESENT: irregular rhythm, systolic murmur. ABSENT: diastolic murmur, rubs GI/Abdominal exam: PRESENT: normal bowel sounds, soft. ABSENT: distended, guarding, mass, organolmegaly, rebound, tenderness Rectal exam: PRESENT: deferred Extremities exam: PRESENT: full ROM. ABSENT: calf tenderness, clubbing, pedal edema Musculoskeletal exam: PRESENT: other - Patient has a brace in place to the right ankle. Right foot is significantly swollen with some ecchymosis around the ankle. ABSENT: ambulatory Neurological exam: PRESENT: alert, awake, oriented to person, oriented to place , oriented to time, oriented to situation, CN II-XII grossly intact. ABSENT: motor sensory deficit Psychiatric exam: PRESENT: appropriate affect, normal mood. ABSENT: homicidal ideation, suicidal ideation Skin exam: PRESENT: dry, intact, warm. ABSENT: cyanosis, rash Results Laboratory Results: 08/10/17 04:08 08/10/17 04:08 08/10/17 08/10/17 04:08 04:08 WBC 8.8 RBC 4.20 L Hgb 12.7 L Hct 37.8 L MCV 90 MCH 30.2 MCHC 33.5 RDW 14.4 H Plt Count 181 Seg Neutrophils % 76.7 Lymphocytes % 9.6 L Monocytes % 11.0 Eosinophils % 1.7 Basophils % 1.0 Absolute Neutrophils 6.7 Absolute Lymphocytes 0.8 Absolute Monocytes 1.0 Absolute Eosinophils 0.1 Absolute Basophils 0.1 Sodium 136.4 L Potassium 3.3 L Chloride 97 L Carbon Dioxide 29 Anion Gap 10 BUN 71 H Creatinine 1.59 H Est GFR ( Amer) 51 L Est GFR (Non-Af Amer) 42 L Glucose 117 H Calcium 8.6 Magnesium 2.4 H Impressions: Ankle X-Ray 08/05/17 00:00 IMPRESSION: NEGATIVE STUDY OF THE RIGHT ANKLE. NO RADIOGRAPHIC EVIDENCE OF ACUTE INJURY. Chest X-Ray 08/05/17 14:04 IMPRESSION: CARDIAC ENLARGEMENT. VASCULAR CONGESTION. Head CT 08/05/17 15:04 IMPRESSION: CHRONIC CHANGES OF ATROPHY AND MICROVASCULAR ISCHEMIA. LEFT POSTERIOR SCALP SWELLING/HEMATOMA. NO FRACTURE OR OTHER ACUTE FINDINGS. EVIDENCE OF ACUTE STROKE: NO. Carotid Doppler Study 08/08/17 00:00 IMPRESSION: NO HEMODYNAMICALLY SIGNIFICANT STENOSIS. Assessment & Plan - Diagnosis (1) Acute and chronic respiratory failure with hypoxia Is this a current diagnosis for this admission?: Yes Plan: Secondary to CO2 CHF exacerbation. Resolved. He is back to his baseline oxygen requirement (2) Acute on chronic diastolic congestive heart failure Is this a current diagnosis for this admission?: Yes Plan: He also has moderately reduced right ventricular function. His acute exacerbation is resolved. Currently euvolemic (3) Syncope and collapse Is this a current diagnosis for this admission?: Yes Plan: Likely from ambulating without his oxygen on. No further episodes (4) Atrial fibrillation Qualifiers: Atrial fibrillation type: paroxysmal Qualified Code(s): I48.0 - Paroxysmal atrial fibrillation Is this a current diagnosis for this admission?: Yes (5) Chronic renal failure Is this a current diagnosis for this admission?: Yes Plan: Stable (6) Diabetes Is this a current diagnosis for this admission?: Yes Plan: Insulin requiring diabetes mellitus. Continue Levemir and sliding scale coverage. (7) Ankle injury Is this a current diagnosis for this admission?: Yes Plan: The patient is unable to ambulate. He will be referred for subacute rehabilitation. His ankle is quite swollen. I am going to get a CT scan of the ankle to rule out an underlying fracture. (8) Scalp hematoma Is this a current diagnosis for this admission?: Yes Plan: Slowly improving (9) Obstructive sleep apnea Is this a current diagnosis for this admission?: Yes Plan: Stable. Continue CPAP (10) Moderate to severe pulmonary hypertension Is this a current diagnosis for this admission?: Yes Plan: Likely due to his obstructive sleep apnea. (11) Dyslipidemia Is this a current diagnosis for this admission?: Yes Plan: Continue simvastatin (12) Ambulatory dysfunction Is this a current diagnosis for this admission?: Yes Plan: The patient cannot ambulate due to his ankle injury. He will require subacute rehabilitation prior to going home. The discharge planners have been consulted - Time Time Spent with patient: 25-34 minutes - Inpatient Certification Medical Necessity: Other - Inpatient hospitalization remains necessary for disposition. The patient is unable to ambulate due to his ankle injury. He will require subacute rehabilitation prior to going home.
[2017-08-10] MEDS: POTASSIUM CHLORIDE 10 MEQ TABLET.SA PO SCH (08:34)
[2017-08-10] MEDS: FEBUXOSTAT 40 MG TABLET PO SCH (08:34)
[2017-08-10] MEDS: FUROSEMIDE 80 MG TABLET PO SCH (10:08)
[2017-08-10] MEDS: LOSARTAN POTASSIUM 50 MG TABLET PO SCH (10:10)
[2017-08-10] MEDS: APIXABAN 2.5 MG TABLET PO SCH ×2 (10:10→17:44)
[2017-08-10] MEDS: CEFTRIAXONE SODIUM 1,000 MG in NORMAL SALINE 100 ML IV SCH (10:10)
[2017-08-10] MEDS ORDERED: POTASSIUM CHLORIDE 10 MEQ TABLET.SA PO ONE (11:43)
[2017-08-10] MEDS ORDERED: HYDROCODONE/ACETAMINOPHEN 5-325 MG TABLET PO ONE (12:30)
[2017-08-10] MEDS ORDERED: METHYLPREDNISOLONE INJ 40 MG/1 ML SDV IV ONE (12:30)
[2017-08-10] MEDS ORDERED: COLCHICINE 0.6 MG TABLET PO ONE (13:30)
--- NOTE | 2017-08-10 14:06 | PDOC PROGRESS REPORT ---
Subjective Progress Note for:: 08/10/17 Subjective:: The patient is sitting up in a chair. He was seen by physical therapy but was maximum assist. Now he cannot even try to use a walker as he has developed severe left elbow pain. He states that he cannot even wiggle his fingers without having severe pain. His left elbow is swollen, somewhat erythematous and warm to the touch. He does have a history of gout. He states that he cannot go home in this current condition and will require subacute rehabilitation prior to transitioning home. Otherwise he denies fever chills. No chest pain, shortness of breath or cough. No nausea, vomiting or diarrhea. No dysuria, frequency or hematuria Reason For Visit: HEART FAILURE Physical Exam Vital Signs: Temp Pulse Resp BP Pulse Ox 97.8 F 86 18 100/52 L 92 08/10/17 11:40 08/10/17 11:40 08/10/17 11:40 08/10/17 11:40 08/10/17 11:40 Intake & Output 08/09/17 08/10/17 08/11/17 06:59 06:59 06:59 Intake Total 1352 1202 Balance 1352 1202 Weight 75.3 kg 75.3 kg General appearance: PRESENT: no acute distress, well-developed, well-nourished Head exam: PRESENT: atraumatic, normocephalic Mouth exam: PRESENT: moist, tongue midline Respiratory exam: PRESENT: clear to auscultation clare. ABSENT: rales, rhonchi, wheezes Cardiovascular exam: PRESENT: RRR, systolic murmur. ABSENT: diastolic murmur, rubs GI/Abdominal exam: PRESENT: normal bowel sounds, soft. ABSENT: distended, guarding, mass, organolmegaly, rebound, tenderness Rectal exam: PRESENT: deferred Extremities exam: PRESENT: other - The patient the patient's right ankle is extremely swollen. There is some ecchymosis around the ankle. The swelling extends from his toes all the way into the pretibial area. Left elbow is quite swollen. There is some mild erythema. He has no range of motion in the elbow and cannot even wiggle his fingers due to the severe pain. Musculoskeletal exam: ABSENT: ambulatory Neurological exam: PRESENT: alert, awake, oriented to person, oriented to place , oriented to time, oriented to situation, CN II-XII grossly intact. ABSENT: motor sensory deficit Psychiatric exam: PRESENT: appropriate affect, normal mood. ABSENT: homicidal ideation, suicidal ideation Skin exam: PRESENT: dry, intact, warm. ABSENT: cyanosis, rash Results Laboratory Results: 08/10/17 04:08 08/10/17 04:08 08/10/17 08/10/17 08/10/17 04:08 04:08 04:08 WBC 8.8 RBC 4.20 L Hgb 12.7 L Hct 37.8 L MCV 90 MCH 30.2 MCHC 33.5 RDW 14.4 H Plt Count 181 Seg Neutrophils % 76.7 Lymphocytes % 9.6 L Monocytes % 11.0 Eosinophils % 1.7 Basophils % 1.0 Absolute Neutrophils 6.7 Absolute Lymphocytes 0.8 Absolute Monocytes 1.0 Absolute Eosinophils 0.1 Absolute Basophils 0.1 Sodium 136.4 L Potassium 3.3 L Chloride 97 L Carbon Dioxide 29 Anion Gap 10 BUN 71 H Creatinine 1.59 H Est GFR ( Amer) 51 L Est GFR (Non-Af Amer) 42 L Glucose 117 H Uric Acid 10.8 H Calcium 8.6 Magnesium 2.4 H Impressions: Ankle X-Ray 08/05/17 00:00 IMPRESSION: NEGATIVE STUDY OF THE RIGHT ANKLE. NO RADIOGRAPHIC EVIDENCE OF ACUTE INJURY. Chest X-Ray 08/05/17 14:04 IMPRESSION: CARDIAC ENLARGEMENT. VASCULAR CONGESTION. Head CT 08/05/17 15:04 IMPRESSION: CHRONIC CHANGES OF ATROPHY AND MICROVASCULAR ISCHEMIA. LEFT POSTERIOR SCALP SWELLING/HEMATOMA. NO FRACTURE OR OTHER ACUTE FINDINGS. EVIDENCE OF ACUTE STROKE: NO. Carotid Doppler Study 08/08/17 00:00 IMPRESSION: NO HEMODYNAMICALLY SIGNIFICANT STENOSIS. Assessment & Plan - Diagnosis (1) Acute and chronic respiratory failure with hypoxia Is this a current diagnosis for this admission?: Yes Plan: Secondary to CO2 CHF exacerbation. Resolved. He is back to his baseline oxygen requirement (2) Acute on chronic diastolic congestive heart failure Is this a current diagnosis for this admission?: Yes Plan: He also has moderately reduced right ventricular function. His acute exacerbation is resolved. Currently euvolemic (3) Syncope and collapse Is this a current diagnosis for this admission?: Yes Plan: Likely from ambulating without his oxygen on. No further episodes (4) Atrial fibrillation Qualifiers: Atrial fibrillation type: paroxysmal Qualified Code(s): I48.0 - Paroxysmal atrial fibrillation Is this a current diagnosis for this admission?: Yes (5) Gout Is this a current diagnosis for this admission?: Yes Plan: The patient's uric acid level is elevated. He has received 1 dose of IV Solu- Medrol. He cannot take NSAIDs due to his renal function. We will start him on colchicine. The patient did fall on that side. I will get an x-ray just to be careful and rule out an underlying fracture. (6) Chronic renal failure Is this a current diagnosis for this admission?: Yes Plan: Stable (7) Diabetes Is this a current diagnosis for this admission?: Yes Plan: Insulin requiring diabetes mellitus. Continue Levemir and sliding scale coverage. (8) Ankle injury Is this a current diagnosis for this admission?: Yes Plan: The patient is unable to ambulate. He will be referred for subacute rehabilitation. His ankle is quite swollen. I am going to get a CT scan of the ankle to rule out an underlying fracture. (9) Scalp hematoma Is this a current diagnosis for this admission?: Yes Plan: Slowly improving (10) Obstructive sleep apnea Is this a current diagnosis for this admission?: Yes Plan: Stable. Continue CPAP (11) Moderate to severe pulmonary hypertension Is this a current diagnosis for this admission?: Yes Plan: Likely due to his obstructive sleep apnea. (12) Dyslipidemia Is this a current diagnosis for this admission?: Yes (13) Ambulatory dysfunction Is this a current diagnosis for this admission?: Yes Plan: The patient cannot ambulate due to his ankle injury. Now he cannot use a walker due to his left elbow pain. He will require subacute rehabilitation prior to going home. The discharge planners have been consulted - Time Time Spent with patient: 25-34 minutes - Inpatient Certification Medical Necessity: Other - Inpatient hospitalization remains necessary for disposition. The patient has gout in his left elbow and a right ankle injury. He cannot safely ambulate and return to the home setting. He will require subacute rehabilitation
[2017-08-10 14:38] LABS: HEMATOCRIT 38.9 % (37.9-51.0); HEMOGLOBIN 13.1 g/dL (13.5-17.0); MEAN CORPUSCULAR HEMOGLOBIN 30.5 pg (27.0-33.4); MEAN CORPUSCULAR HGB CONC 33.8 g/dL (32.0-36.0); MEAN CORPUSCULAR VOLUME 90 fl (80-97); PLATELET COUNT 190 10^3/uL (150-450); RED BLOOD COUNT 4.31 10^6/uL (4.35-5.55); RED CELL DISTRIBUTION WIDTH 14.3 % (11.5-14.0); WHITE BLOOD COUNT 10.7 10^3/uL (4.0-10.5)
[2017-08-10 14:46] LABS: INTERNATIONAL RATION (INR) 1.48; PROTHROMBIN TIME 18.8 SEC (11.4-15.4)
--- NOTE | 2017-08-10 15:08 | RADIOLOGY REPORT (SQ) ---
EXAM DESCRIPTION: ANKLE RIGHT AP/LATERAL COMPLETED DATE/TIME: 08/10/2017 2:59 pm REASON FOR STUDY: f/u ankle injury, see if fx shows up now COMPARISON: 08/05/2017 NUMBER OF VIEWS: Two views. TECHNIQUE: AP and lateral radiographic images acquired of the right ankle. LIMITATIONS: None. FINDINGS: MINERALIZATION: Normal. BONES: On the lateral view an oblique lucency can be seen in the distal fibula. JOINTS: No effusions. SOFT TISSUES: No soft tissue swelling. No foreign body. OTHER: No other significant finding. IMPRESSION: There appears to be a nondisplaced fracture of the distal fibula. TECHNICAL DOCUMENTATION: JOB ID: [id number] [employer]- All Rights Reserved Reading location - IP/workstation name: [email or web address]
--- NOTE | 2017-08-10 15:11 | RADIOLOGY REPORT (SQ) ---
EXAM DESCRIPTION: ELBOW LEFT AP/LATERAL COMPLETED DATE/TIME: 08/10/2017 2:59 pm REASON FOR STUDY: elbow pain, recent fall COMPARISON: None. NUMBER OF VIEWS: Three views. TECHNIQUE: AP, lateral, and oblique radiographic images acquired of the left elbow. LIMITATIONS: None. FINDINGS: MINERALIZATION: Normal. BONES: No acute fracture or dislocation. No worrisome bone lesions. JOINT: No effusion. SOFT TISSUES: There are calcifications around the elbow, possibly suggesting prior trauma PE OTHER: No other significant finding. IMPRESSION: No acute abnormality is seen. TECHNICAL DOCUMENTATION: JOB ID: [id number] [employer]- All Rights Reserved Reading location - IP/workstation name: [email or web address]
[2017-08-10] MEDS: INSULIN LISPRO 100 UNIT/ML 3 ML VIAL SUBCUT PRN ×2 (17:44→21:40)
[2017-08-10] MEDS: TAMSULOSIN HCL 0.4 MG CAP.SR.24H PO SCH (17:44)
--- NOTE | 2017-08-10 20:04 | PDOC PROGRESS REPORT ---
Subjective Progress Note for:: 08/10/17 Subjective:: Patient developed severe pain in the left elbow and is unable to ambulate with walker. Patient claims to be doing well. He is denying any chest, neck discomfort. Currently denying any significant symptoms. Has some shortness of breath on exertion. Patient claims that he has not seen a superintendent sales in quite some time. Therefore have written a consultation for Dr. Jessica whom he claims may have seen in the past. Patient was started on Eliquis at 2.5 mg p.o. twice daily yesterday which seems to be right dose in view of patient's age and stage III renal dysfunction.. Telemetry shows patient maintaining atrial fibrillation. Reason For Visit: HEART FAILURE Physical Exam Vital Signs: Temp Pulse Resp BP Pulse Ox 98.3 F 89 18 107/63 98 08/10/17 15:53 08/10/17 15:53 08/10/17 15:53 08/10/17 15:53 08/10/17 15:53 Intake & Output 08/09/17 08/10/17 08/11/17 06:59 06:59 06:59 Intake Total 1352 1202 830 Balance 1352 1202 830 Weight 75.3 kg 75.3 kg Results Laboratory Results: 08/10/17 14:27 08/10/17 04:08 08/10/17 08/10/17 08/10/17 04:08 04:08 04:08 WBC 8.8 RBC 4.20 L Hgb 12.7 L Hct 37.8 L MCV 90 MCH 30.2 MCHC 33.5 RDW 14.4 H Plt Count 181 Seg Neutrophils % 76.7 Lymphocytes % 9.6 L Monocytes % 11.0 Eosinophils % 1.7 Basophils % 1.0 Absolute Neutrophils 6.7 Absolute Lymphocytes 0.8 Absolute Monocytes 1.0 Absolute Eosinophils 0.1 Absolute Basophils 0.1 Sodium 136.4 L Potassium 3.3 L Chloride 97 L Carbon Dioxide 29 Anion Gap 10 BUN 71 H Creatinine 1.59 H Est GFR ( Amer) 51 L Est GFR (Non-Af Amer) 42 L Glucose 117 H Uric Acid 10.8 H Calcium 8.6 Magnesium 2.4 H 08/10/17 14:27 WBC 10.7 H RBC 4.31 L Hgb 13.1 L Hct 38.9 MCV 90 MCH 30.5 MCHC 33.8 RDW 14.3 H Plt Count 190 Seg Neutrophils % Lymphocytes % Monocytes % Eosinophils % Basophils % Absolute Neutrophils Absolute Lymphocytes Absolute Monocytes Absolute Eosinophils Absolute Basophils Sodium Potassium Chloride Carbon Dioxide Anion Gap BUN Creatinine Est GFR ( Amer) Est GFR (Non-Af Amer) Glucose Uric Acid Calcium Magnesium Impressions: Chest X-Ray 08/05/17 14:04 IMPRESSION: CARDIAC ENLARGEMENT. VASCULAR CONGESTION. Head CT 08/05/17 15:04 IMPRESSION: CHRONIC CHANGES OF ATROPHY AND MICROVASCULAR ISCHEMIA. LEFT POSTERIOR SCALP SWELLING/HEMATOMA. NO FRACTURE OR OTHER ACUTE FINDINGS. EVIDENCE OF ACUTE STROKE: NO. Carotid Doppler Study 08/08/17 00:00 IMPRESSION: NO HEMODYNAMICALLY SIGNIFICANT STENOSIS. Ankle X-Ray 08/10/17 00:00 IMPRESSION: There appears to be a nondisplaced fracture of the distal fibula. Elbow X-Ray 08/10/17 00:00 IMPRESSION: No acute abnormality is seen. Assessment & Plan - Diagnosis (1) Syncope and collapse Is this a current diagnosis for this admission?: Yes (2) Congestive heart failure (CHF) Qualifiers: Heart failure type: diastolic Heart failure chronicity: acute on chronic Qualified Code(s): I50.33 - Acute on chronic diastolic (congestive) heart failure Is this a current diagnosis for this admission?: Yes (3) Acute and chronic respiratory failure with hypoxia Is this a current diagnosis for this admission?: Yes (4) Diabetes mellitus Qualifiers: Diabetes mellitus type: type 2 Diabetes mellitus complication status: without complication Is this a current diagnosis for this admission?: Yes (5) Dyslipidemia Is this a current diagnosis for this admission?: Yes (6) Hypertension Qualifiers: Hypertension type: essential hypertension Is this a current diagnosis for this admission?: Yes (7) Pulmonary hypertension Is this a current diagnosis for this admission?: Yes (8) Atrial fibrillation Qualifiers: Atrial fibrillation type: paroxysmal Qualified Code(s): I48.0 - Paroxysmal atrial fibrillation Is this a current diagnosis for this admission?: Yes (9) Obstructive sleep apnea Is this a current diagnosis for this admission?: Yes - Notes Notes: Acute gout: Patient may have severe gout flareup. Patient on Uloric but may need to be treated with either colchicine or Toradol IV. Observe for any renal function abnormality worsening. Syncope and collapse: No further recurrence of syncope or near syncope while in the hospital. Exact etiology not clear. Differential diagnosis includes cardiac dysrhythmia, postural hypotension, hypoglycemia etc. so far no significant cardiac dysrhythmia noted except for atrial fibrillation with somewhat of a rapid ventricular response. Have increased metoprolol succinate to 25 mg p.o. twice daily. Heart rate seemed to be coming under better control. Congestive heart failure: Acute on chronic diastolic heart failure. Patient also has a history of severe pulmonary hypertension. Echocardiogram shows severe pulmonary hypertension with significant RV systolic dysfunction. Continue with diuretic therapy. Currently is stable. No volume overload noted on today's exam. Diabetes: Recommend good control but avoid any hypo-or hyperglycemia. Dyslipidemia: Continue statin therapy. Hypertension: Systemic would consider liberal control in this elderly gentleman. Pulmonary hypertension: Patient has history of severe pulmonary hypertension. Possibly secondary to chronic left heart failure. Will obtain an arterial blood gas. Obstructive sleep apnea: Patient will be instructed to bring his CPAP machine and use during this hospitalization. Patient advised compliance with CPAP machine and chronic oxygen supplementation. Abnormal urinalysis: Patient currently on antibiotics. Atrial fibrillation: Chronic based on chart review. Patient was started on Eliquis 2.5 mg p.o. twice daily. Continue with this dose. Patient is tolerating this well. Heart rate seems relatively well controlled.
[2017-08-10] MEDS: INSULIN DETEMIR 100 UNIT/ML 3 ML PEN SUBCUT SCH (21:40)
[2017-08-10] MEDS: SIMVASTATIN 10 MG TABLET PO SCH (21:40)
[2017-08-11 05:43] LABS: HEMATOCRIT 39.5 % (37.9-51.0); HEMOGLOBIN 13.1 g/dL (13.5-17.0); MEAN CORPUSCULAR HGB CONC 33.3 g/dL (32.0-36.0); MEAN CORPUSCULAR VOLUME 90 fl (80-97); PLATELET COUNT 198 10^3/uL (150-450); RED BLOOD COUNT 4.38 10^6/uL (4.35-5.55); RED CELL DISTRIBUTION WIDTH 14.3 % (11.5-14.0); WHITE BLOOD COUNT 11.3 10^3/uL (4.0-10.5)
[2017-08-11 05:47] LABS: ANION GAP 14 (5-19); BLOOD UREA NITROGEN 71 mg/dL (7-20); CARBON DIOXIDE 28 mmol/L (22-30); CHLORIDE 95 mmol/L (98-107); GLUCOSE 268 mg/dL (75-110); POTASSIUM 4.3 mmol/L (3.6-5.0)
[2017-08-11] MEDS: LANSOPRAZOLE 30 MG TAB.RAP.DR PO SCH (06:13)
[2017-08-11 06:20] LABS: ABSOLUTE LYMPHOCYTES# (MANUAL) 0.7 10^3/uL (0.5-4.7); ABSOLUTE MONOCYTES # (MANUAL) 0.6 10^3/uL (0.1-1.4); ABSOLUTE NEUTROPHILS# (MANUAL) 10.1 10^3/uL (1.7-8.2); BASOPHILS % (MANUAL) 0 % (0-2); EOSINOPHILS % (MANUAL) 0 % (0-6); LYMPHOCYTES % (MANUAL) 5 % (13-45); MONOCYTES % (MANUAL) 5 % (3-13); PLATELET COMMENT ADEQUATE; SEGMENTED NEUTROPHILS % (MAN) 89 % (42-78); TOTAL CELLS COUNTED 100
[2017-08-11 06:21] LABS: ANISOCYTOSIS SLIGHT
[2017-08-11] MEDS: INSULIN LISPRO 100 UNIT/ML 3 ML VIAL SUBCUT PRN ×4 (08:26→23:25)
[2017-08-11] MEDS: FUROSEMIDE 80 MG TABLET PO SCH (10:43)
[2017-08-11] MEDS: APIXABAN 2.5 MG TABLET PO SCH ×2 (10:44→17:10)
[2017-08-11] MEDS: METOPROLOL SUCCINATE 25 MG TAB.SR.24H PO SCH ×2 (10:44→21:47)
[2017-08-11] MEDS: CEFTRIAXONE SODIUM 1,000 MG in NORMAL SALINE 100 ML IV SCH (10:44)
[2017-08-11] MEDS: LOSARTAN POTASSIUM 50 MG TABLET PO SCH (10:44)
--- NOTE | 2017-08-11 16:54 | PDOC PROGRESS REPORT ---
Subjective Progress Note for:: 08/11/17 Subjective:: The patient is an 81-year-old male with a past medical history significant for atrial fibrillation on chronic anticoagulation therapy with Coumadin. He has chronic kidney disease and chronic respiratory failure on oxygen therapy. He has BPH and obstructive sleep apnea. He also has issues with diastolic congestive heart failure. He was admitted on 08/05/2017 after having a fall at home. It is a little unclear if he had a syncopal event. He had not taken his Lasix that day and he had taken his oxygen off to go back to the house to see if the door was locked. He fell and sustained head injury as well as injured his right ankle. When he was brought to the emergency room he was found to have acute on chronic respiratory failure as well as evidence of an acute congestive heart failure exacerbation. He was diuresed with IV Lasix. He has been followed closely by the cardiology service and at this point is found to be stable for transfer to a [facility] facility for subacute rehabilitation. Patient did undergo does have a scalp hematoma. CT scan of the brain was negative at the time of admission. He had his right ankle x- rayed at the time of admission and no fracture was noted. Yesterday the patient developed acute left elbow pain and was found to be having an acute gout flare. This is totally resolved today with IV Solu-Medrol and colchicine. I repeated an x-ray of the ankle due to ongoing swelling. The patient has not been able to bear weight with physical therapy without having a significant amount of pain. X-ray does reveal a nondisplaced distal fibula fracture. Orthopedic surgery has been consulted. Would like recommendations on whether he could be weightbearing. The patient may need a boot or cast rather than the brace he currently has on. Hopefully orthopedic surgery can see the patient today so that we can get him out to subacute rehabilitation tomorrow before the upcoming weekend. When I saw the patient today he sitting up in a chair. He states he is still having pain in the ankle when he tries to stand up. He states his left elbow pain is totally resolved. He denies fever chills. No chest pain, shortness of breath or cough. He states his breathing is back to its baseline. No nausea, vomiting or diarrhea. He is tolerating his diet. No urinary complaints Reason For Visit: HEART FAILURE Physical Exam Vital Signs: Temp Pulse Resp BP Pulse Ox 97.5 F 87 18 104/61 98 08/11/17 15:37 08/11/17 15:37 08/11/17 15:37 08/11/17 15:37 08/11/17 15:42 Intake & Output 08/10/17 08/11/17 08/12/17 06:59 06:59 06:59 Intake Total 1202 930 Output Total 250 Balance 1202 680 Weight 75.3 kg 75.3 kg General appearance: PRESENT: no acute distress, well-developed, well-nourished Head exam: PRESENT: normocephalic, other - Scalp hematoma which is improving Eye exam: PRESENT: conjunctiva pink, EOMI, PERRLA. ABSENT: scleral icterus Respiratory exam: PRESENT: clear to auscultation clare, decreased breath sounds - He is diminished in the lower bases bilaterally. ABSENT: rales, rhonchi, wheezes Cardiovascular exam: PRESENT: RRR. ABSENT: diastolic murmur, rubs, systolic murmur GI/Abdominal exam: PRESENT: normal bowel sounds, soft. ABSENT: distended, guarding, mass, organolmegaly, rebound, tenderness Rectal exam: PRESENT: deferred Extremities exam: PRESENT: other - Right foot with brace in place. There is 2+ pitting edema and some ecchymosis around the ankle area. Musculoskeletal exam: ABSENT: ambulatory, full ROM Neurological exam: PRESENT: alert, awake, oriented to person, oriented to place , oriented to time, oriented to situation, CN II-XII grossly intact. ABSENT: motor sensory deficit Psychiatric exam: PRESENT: appropriate affect, normal mood. ABSENT: homicidal ideation, suicidal ideation Skin exam: PRESENT: dry, intact, warm. ABSENT: cyanosis, rash Results Laboratory Results: 08/11/17 04:30 08/11/17 04:30 08/11/17 08/11/17 04:30 04:30 WBC 11.3 H RBC 4.38 Hgb 13.1 L Hct 39.5 MCV 90 MCH 30.0 MCHC 33.3 RDW 14.3 H Plt Count 198 Seg Neutrophils % Not Reportable Lymphocytes % Not Reportable Monocytes % Not Reportable Eosinophils % Not Reportable Basophils % Not Reportable Absolute Neutrophils Not Reportable Absolute Lymphocytes Not Reportable Absolute Monocytes Not Reportable Absolute Eosinophils Not Reportable Absolute Basophils Not Reportable Sodium 137.0 Potassium 4.3 Chloride 95 L Carbon Dioxide 28 Anion Gap 14 BUN 71 H Creatinine 1.38 H Est GFR ( Amer) > 60 Est GFR (Non-Af Amer) 49 L Glucose 268 H Calcium 9.0 Impressions: Chest X-Ray 08/05/17 14:04 IMPRESSION: CARDIAC ENLARGEMENT. VASCULAR CONGESTION. Head CT 08/05/17 15:04 IMPRESSION: CHRONIC CHANGES OF ATROPHY AND MICROVASCULAR ISCHEMIA. LEFT POSTERIOR SCALP SWELLING/HEMATOMA. NO FRACTURE OR OTHER ACUTE FINDINGS. EVIDENCE OF ACUTE STROKE: NO. Carotid Doppler Study 08/08/17 00:00 IMPRESSION: NO HEMODYNAMICALLY SIGNIFICANT STENOSIS. Ankle X-Ray 08/10/17 00:00 IMPRESSION: There appears to be a nondisplaced fracture of the distal fibula. Elbow X-Ray 08/10/17 00:00 IMPRESSION: No acute abnormality is seen. Assessment & Plan - Diagnosis (1) Acute and chronic respiratory failure with hypoxia Is this a current diagnosis for this admission?: Yes (2) Acute on chronic diastolic congestive heart failure Is this a current diagnosis for this admission?: Yes (3) Syncope and collapse Is this a current diagnosis for this admission?: Yes (4) Atrial fibrillation Qualifiers: Atrial fibrillation type: paroxysmal Qualified Code(s): I48.0 - Paroxysmal atrial fibrillation Is this a current diagnosis for this admission?: Yes (5) Gout Is this a current diagnosis for this admission?: Yes (6) Chronic renal failure Is this a current diagnosis for this admission?: Yes (7) Diabetes Is this a current diagnosis for this admission?: Yes (8) Ankle injury Is this a current diagnosis for this admission?: Yes (9) Scalp hematoma Is this a current diagnosis for this admission?: Yes (10) Obstructive sleep apnea Is this a current diagnosis for this admission?: Yes (11) Moderate to severe pulmonary hypertension Is this a current diagnosis for this admission?: Yes (12) Dyslipidemia Is this a current diagnosis for this admission?: Yes (13) Ambulatory dysfunction Is this a current diagnosis for this admission?: Yes - Time Time Spent with patient: 15-24 minutes - Inpatient Certification Medical Necessity: Other - Inpatient hospitalization remains necessary. The patient does have a bed for subacute rehabilitation. repeat imaging of his ankle does reveal a distal fibula fracture. I would like him evaluated by orthopedic surgery to make recommendations on the best way to pursue his rehabilitation prior to discharge. Hopefully he can go tomorrow. A
[2017-08-11] MEDS: TAMSULOSIN HCL 0.4 MG CAP.SR.24H PO SCH (17:10)
[2017-08-11] MEDS: INSULIN DETEMIR 100 UNIT/ML 3 ML PEN SUBCUT SCH (21:46)
[2017-08-11] MEDS: SIMVASTATIN 10 MG TABLET PO SCH (21:47)
[2017-08-11] MEDS: ACETAMINOPHEN 325 MG TABLET PO PRN (21:48)
--- NOTE | 2017-08-12 06:17 | PDOC CONSULTATION ---
Consultation Consult Date: 08/12/17 Consult reason:: Right ankle pain/lateral malleolar fracture History of Present Illness Admission Date/PCP: 08/05/17 15:09 KATHI GARCIA MD History of Present Illness: The patient is a 81-year-old white male with a myriad of medical comorbidities who fell on the day of admission and presumably sustained a right ankle injury at that time. In the process of his ongoing evaluation for his medical comorbidities right ankle pain and swelling were noted. Radiographs demonstrated a nondisplaced lateral malleolar fracture. Orthopedics is consulted for fracture management. Past Medical History Cardiac Medical History: Reports: Atrial Fibrillation, Congestive Heart Failure , Coronary Artery Disease, Hyperlipidema, Hypertension - on meds Denies: Myocardial Infarction Pulmonary Medical History: Denies: Asthma, Bronchitis, Chronic Obstructive Pulmonary Disease (COPD), Pneumonia Neurological Medical History: Denies: Seizures Endocrine Medical History: Reports: Diabetes Mellitus Type 2 Musculoskeltal Medical History: Reports: Arthritis Psychiatric Medical History: Denies: Depression Hematology: Denies: Anemia Social History Information Source: Patient, ON LICENSE OF [facility] Records Smoking Status: Former Smoker Frequency of Alcohol Use: None Hx Recreational Drug Use: No Drugs: None Hx Prescription Drug Abuse: No - Advance Directive Resuscitation Status: Full Code Family History Family History: Malignancy Parental Family History Reviewed: No Children Family History Reviewed: No Sibling(s) Family History Reviewed.: No Medication/Allergy Home Medications: Amlodipine Besylate [Norvasc 5 mg Tablet] 5 mg PO DAILY 08/05/17 Atenolol [Tenormin 50 mg Tablet] 25 mg PO DAILY 08/05/17 Diltiazem HCl [Cartia Xt] 180 mg PO Q12 08/05/17 Febuxostat [Uloric 40 mg Tablet] 40 mg PO MOWEFR@0800 08/05/17 Furosemide [Lasix 40 mg Tablet] 40 mg PO MOWEFR@0800 08/05/17 Glipizide [Glipizide Xl] 10 mg PO DAILY 08/05/17 Insulin Detemir [Levemir Flextouch] 30 unit SQ QHS 08/05/17 Losartan Potassium [Cozaar 100 mg Tablet] 100 mg PO DAILY 08/05/17 Metformin HCl [Glucophage 500 mg Tablet] 500 mg PO DAILY 08/05/17 Metolazone [Zaroxolyn 2.5 mg Tablet] 2.5 mg PO MOWEFR@0800 08/05/17 Potassium Chloride [Klor-Con M20] 20 meq PO MOWEFR@0800 08/05/17 Simvastatin [Zocor 20 mg Tablet] 20 mg PO QHS 08/05/17 Tamsulosin HCl [Flomax 0.4 mg Cap.sr] 0.4 mg PO PCSUPPER 08/05/17 Warfarin Sodium [Coumadin 5 mg Tablet] 5 mg PO DAILY 08/05/17 Allergies/Adverse Reactions: No Known Allergies Allergy (Verified 08/05/17 14:42) Review of Systems All systems: as per PMH - Patient currently wearing CPAP machine and verbal communication is limited Physical Exam Vital Signs: Temp Pulse Resp BP Pulse Ox 36.3 C 84 16 107/67 98 08/12/17 03:33 08/12/17 03:33 08/12/17 03:33 08/12/17 03:33 08/12/17 03:33 Intake & Output 08/10/17 08/11/17 08/12/17 06:59 06:59 06:59 Intake Total 1202 930 820 Output Total 250 790 Balance 1202 680 30 Weight 75.3 kg 75.3 kg General appearance: PRESENT: no acute distress, well-developed Head exam: PRESENT: normocephalic Respiratory exam: PRESENT: unlabored, other - CPAP Cardiovascular exam: PRESENT: RRR Pulses: PRESENT: +1 pedal pulses bilateral Vascular exam: PRESENT: normal capillary refill GI/Abdominal exam: PRESENT: soft Rectal exam: PRESENT: deferred Extremities exam: PRESENT: other - Right ankle in a stirrup Aircast brace. There is tenderness to palpation over the lateral malleolus. There is no skin abnormalities. Range of motion and stability are not assessed. Neurological exam: PRESENT: alert, altered, awake, oriented to person, oriented to place, oriented to time, oriented to situation Psychiatric exam: PRESENT: appropriate affect, normal mood. ABSENT: homicidal ideation, suicidal ideation Focused psych exam: PRESENT: other - Patient stressed over not being able to find the call button Skin exam: PRESENT: dry, intact, warm. ABSENT: cyanosis, rash Results Laboratory Results: 08/11/17 04:30 08/11/17 04:30 08/11/17 04:30 WBC 11.3 H RBC 4.38 Hgb 13.1 L Hct 39.5 MCV 90 MCH 30.0 MCHC 33.3 RDW 14.3 H Plt Count 198 Seg Neutrophils % Not Reportable Lymphocytes % Not Reportable Monocytes % Not Reportable Eosinophils % Not Reportable Basophils % Not Reportable Absolute Neutrophils Not Reportable Absolute Lymphocytes Not Reportable Absolute Monocytes Not Reportable Absolute Eosinophils Not Reportable Absolute Basophils Not Reportable Impressions: Chest X-Ray 08/05/17 14:04 IMPRESSION: CARDIAC ENLARGEMENT. VASCULAR CONGESTION. Head CT 08/05/17 15:04 IMPRESSION: CHRONIC CHANGES OF ATROPHY AND MICROVASCULAR ISCHEMIA. LEFT POSTERIOR SCALP SWELLING/HEMATOMA. NO FRACTURE OR OTHER ACUTE FINDINGS. EVIDENCE OF ACUTE STROKE: NO. Carotid Doppler Study 08/08/17 00:00 IMPRESSION: NO HEMODYNAMICALLY SIGNIFICANT STENOSIS. Ankle X-Ray 08/10/17 00:00 IMPRESSION: There appears to be a nondisplaced fracture of the distal fibula. Elbow X-Ray 08/10/17 00:00 IMPRESSION: No acute abnormality is seen. Status: Imported from PACS Assessment & Plan - Diagnosis (1) Fx lateral malleolus-closed Is this a current diagnosis for this admission?: Yes Plan: 81-year-old white male with a fall and now a nondisplaced right lateral malleolus fracture. This is a fracture that can be treated nonoperatively. The stirrup Aircast splint that the patient is currently in is probably not sufficient to mobilize the ankle and allow the fracture to heal without displacement. The brace shop has been consulted for a cam walker. Once the cam walker has been delivered and applied the patient can be up with physical therapy and weightbearing as to how to basis. I am glad to see the patient back as an outpatient once he is discharged for further follow-up. - Time Time Spent: 50 to 70 Minutes Anticipated discharge: Other Within: Other
[2017-08-12] MEDS: LANSOPRAZOLE 30 MG TAB.RAP.DR PO SCH (06:36)
[2017-08-12 07:46] LABS: ABSOLUTE BASOPHILS # (AUTO) 0.1 10^3/uL (0.0-0.2); ABSOLUTE EOSINOPHILS # (AUTO) 0.2 10^3/uL (0.0-0.6); ABSOLUTE LYMPHOCYTES (AUTO) 1.3 10^3/uL (0.5-4.7); ABSOLUTE MONOCYTES (AUTO) 0.8 10^3/uL (0.1-1.4); ABSOLUTE NEUT (AUTO) 6.7 10^3/uL (1.7-8.2); BASOPHILS % (AUTO) 0.8 % (0-2); EOSINOPHILS % (AUTO) 2.7 % (0-6); HEMATOCRIT 41.3 % (37.9-51.0); LYMPHOCYTES % (AUTO) 13.9 % (13-45); MEAN CORPUSCULAR HEMOGLOBIN 30.4 pg (27.0-33.4); MEAN CORPUSCULAR HGB CONC 33.8 g/dL (32.0-36.0); MEAN CORPUSCULAR VOLUME 90 fl (80-97); MONOCYTES % (AUTO) 9.2 % (3-13); PLATELET COUNT 269 10^3/uL (150-450); RED BLOOD COUNT 4.59 10^6/uL (4.35-5.55); RED CELL DISTRIBUTION WIDTH 14.5 % (11.5-14.0); SEGMENTED NEUTROPHILS % (AUTO) 73.4 % (42-78); TOTAL CELLS COUNTED % (AUTO) 100 %; WHITE BLOOD COUNT 9.2 10^3/uL (4.0-10.5)
[2017-08-12] MEDS: POTASSIUM CHLORIDE 10 MEQ TABLET.SA PO SCH (08:12)
[2017-08-12] MEDS: FEBUXOSTAT 40 MG TABLET PO SCH (08:12)
[2017-08-12 08:14] LABS: ANION GAP 12 (5-19); BLOOD UREA NITROGEN 78 mg/dL (7-20); CALCIUM 9.4 mg/dL (8.4-10.2); CARBON DIOXIDE 31 mmol/L (22-30); CHLORIDE 100 mmol/L (98-107); GLUCOSE 114 mg/dL (75-110); SODIUM 142.6 mmol/L (137-145)
[2017-08-12] MEDS: APIXABAN 2.5 MG TABLET PO SCH ×2 (09:22→18:32)
[2017-08-12] MEDS: LOSARTAN POTASSIUM 50 MG TABLET PO SCH (09:22)
[2017-08-12] MEDS: FUROSEMIDE 80 MG TABLET PO SCH (09:23)
[2017-08-12] MEDS: METOPROLOL SUCCINATE 25 MG TAB.SR.24H PO SCH ×2 (09:23→21:16)
[2017-08-12] MEDS: CEFTRIAXONE SODIUM 1,000 MG in NORMAL SALINE 100 ML IV SCH (09:28)
[2017-08-12] MEDS: INSULIN LISPRO 100 UNIT/ML 3 ML VIAL SUBCUT PRN ×3 (12:08→21:22)
--- NOTE | 2017-08-12 16:34 | PDOC TRANSFER SUMMARY ---
General - Admit/Disc Date/PCP Admission Date/Primary Care Provider: 08/05/17 15:09 KATHI GARCIA MD Discharge Date: 08/12/17 - Discharge Diagnosis (1) Acute and chronic respiratory failure with hypoxia Is this a current diagnosis for this admission?: Yes Summary: Secondary to a COPD exacerbation; now resolved. The patient is back to his baseline oxygen requirement of 2 L/min during the day and 3 L/min while sleeping. (2) Right fibular fracture Is this a current diagnosis for this admission?: Yes Summary: Evaluated by Dr. Chavez; Clam boot in place. May weight-bear with boot on. PT/ OT through acute rehab. Follow-up as an outpatient in 1-2 weeks. (3) Leukocytosis Is this a current diagnosis for this admission?: Yes Summary: Secondary to corticosteroids as treatment for COPD exacerbation. Now resolved. (4) Syncope and collapse Is this a current diagnosis for this admission?: Yes Summary: Likely from a voiding without oxygen on. No further episodes. (5) Acute on chronic diastolic congestive heart failure Is this a current diagnosis for this admission?: Yes Summary: Exacerbation is now resolved. Currently euvolemic. Echocardiogram demonstrated LV EF is low normal. There is mild to moderate diastolic dysfunction. The right ventricle appears to be hypertrophied with moderate dilation. Right ventricular systolic function is moderately reduced. Mild amount of mitral regurgitation, no aortic stenosis, mild amount of tricuspid regurgitation. There is severe pulmonary hypertension. (6) Diabetes mellitus Is this a current diagnosis for this admission?: Yes Summary: Levemir with Humalog for sliding scale coverage. (7) Atrial fibrillation and flutter Is this a current diagnosis for this admission?: Yes Summary: Chronic; rate controlled and on Eliquis. (8) CKD (chronic kidney disease), stage III Is this a current diagnosis for this admission?: Yes (9) Obstructive sleep apnea Is this a current diagnosis for this admission?: Yes Summary: CPAP sleeping. - Additional Information Resuscitation Status: Full Code Discharge Diet: Cardiac, Diabetic Discharge Activity: Activity As Tolerated, Balance Activity w/Rest, Supervised Activity - PT/OT, Weigh Daily Prescriptions: Apixaban [Eliquis 2.5 mg Tablet] 2.5 mg PO BID #60 tablet Furosemide [Lasix 80 mg Tablet] 80 mg PO DAILY #30 tablet Lansoprazole [Prevacid 30 mg Odt Tablet] 30 mg PO Q6AM #30 tab.rap Metoprolol Succinate [Toprol Xl 25 mg Tab.sr] 25 mg PO Q12 #60 tab.sr.24h Tramadol HCl [Ultram 50 mg Tablet] 50 mg PO Q8HP PRN #10 tablet PRN Reason: Home Medications: Febuxostat [Uloric 40 mg Tablet] 40 mg PO MOWEFR@0800 08/05/17 Glipizide [Glipizide Xl] 10 mg PO DAILY 08/05/17 Insulin Detemir [Levemir Flextouch] 30 unit SQ QHS 08/05/17 Losartan Potassium [Cozaar 100 mg Tablet] 100 mg PO DAILY 08/05/17 Metformin HCl [Glucophage 500 mg Tablet] 500 mg PO DAILY 08/05/17 Metolazone [Zaroxolyn 2.5 mg Tablet] 2.5 mg PO MOWEFR@0800 08/05/17 Potassium Chloride [Klor-Con M20] 20 meq PO MOWEFR@0800 08/05/17 Simvastatin [Zocor 20 mg Tablet] 20 mg PO QHS 08/05/17 Tamsulosin HCl [Flomax 0.4 mg Cap.sr] 0.4 mg PO PCSUPPER 08/05/17 Acetaminophen [Tylenol 325 mg Tablet] 650 mg PO Q4HP PRN tablet 08/12/17 Apixaban [Eliquis 2.5 mg Tablet] 2.5 mg PO BID #60 tablet 08/12/17 Furosemide [Lasix 80 mg Tablet] 80 mg PO DAILY #30 tablet 08/12/17 Lansoprazole [Prevacid 30 mg Odt Tablet] 30 mg PO Q6AM #30 tab 08/12/17 Metolazone [Zaroxolyn 2.5 mg Tablet] 2.5 mg PO Q48H tablet 08/12/17 Metoprolol Succinate [Toprol Xl 25 mg Tab.sr] 25 mg PO Q12 #60 tab.sr.24h Tamsulosin HCl [Flomax 0.4 mg Cap.sr] 0.4 mg PO QPM #0 cap.sr.24h 08/12/17 Tramadol HCl [Ultram 50 mg Tablet] 50 mg PO Q8HP PRN #10 tablet 08/12/17 History of Present Illness Admission Date/PCP: 08/05/17 15:09 KATHI GARCIA MD History of Present Illness: The patient is a 81-year-old white male with a myriad of medical comorbidities who fell on the day of admission and presumably sustained a right ankle injury at that time. In the process of his ongoing evaluation for his medical comorbidities right ankle pain and swelling were noted. Radiographs demonstrated a nondisplaced lateral malleolar fracture. Orthopedics is consulted for fracture management. Hospital Course Hospital Course: The patient is an 81-year-old male with past medical history of atrial fibrillation on Coumadin, CKD, hypoxic respiratory failure on oxygen, gait dysfunction, BPH, obstructive sleep apnea, CHF who was admitted on 08/05/17 after syncopal event. The patient does admit that he did not take his Lasix that day and also that he was not on his prescribed oxygen at the time of his fall as he had placed the oxygen inside his car and was returning to the home to ensure that the door was locked. The patient experienced a syncopal event landing on concrete. He does report a possible LOC for an unknown period of time. 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 CT revealed chronic changes of atrophy and microvascular ischemia. Left posterior scalp swelling/hematoma present no fracture or acute findings. No evidence of acute stroke. He was admitted to the hospital service for evaluation of his syncopal event. He was also found to be in acute on chronic respiratory failure with hypoxia secondary to a CHF exacerbation which improved after diuresis. Echocardiogram was obtained demonstrating a low normal LVEF, mild to moderate diastolic dysfunction, ventricular hypertrophy and dilatation with severe pulmonary hypertension. Carotid Doppler did not demonstrate dynamic least significant stenosis. Cardiology was consulted who made medication adjustments. The patient was also evaluated for right ankle pain and found to have a lateral malleolar fracture. Dr. Chavez was consulted and recommended the patient receive a cam walker. The patient's diabetes was managed with Levemir and sliding scale insulin. His chronic kidney is at baseline. The patient is rate controlled and was transitioned from Coumadin to Eliquis per cardiology. He does use CPAP nightly for obstructive sleep apnea. The patient has been accepted to [facility] for acute rehabilitation. At time of discharge, he is in stable condition. Physical Exam Vital Signs: Temp Pulse Resp BP Pulse Ox 97.8 F 101 H 14 99/82 L 99 08/12/17 11:54 08/12/17 14:00 08/12/17 11:54 08/12/17 11:54 08/12/17 11:54 Intake & Output 08/11/17 08/12/17 08/13/17 06:59 06:59 06:59 Intake Total 930 920 Output Total 250 940 Balance 680 -20 Weight 75.3 kg 71.8 kg General appearance: PRESENT: no acute distress, well-developed, well-nourished, other - Overweight Head exam: PRESENT: normocephalic. ABSENT: atraumatic - Left posterior scalp hematoma and abrasion Eye exam: PRESENT: conjunctiva pink, EOMI, PERRLA. ABSENT: scleral icterus Ear exam: PRESENT: normal external ear exam Mouth exam: PRESENT: moist, tongue midline Neck exam: ABSENT: carotid bruit, JVD, lymphadenopathy, thyromegaly Respiratory exam: PRESENT: clear to auscultation clare, symmetrical, unlabored. ABSENT: rales, rhonchi, wheezes Cardiovascular exam: PRESENT: RRR, +S1, +S2. ABSENT: diastolic murmur, rubs, systolic murmur Pulses: PRESENT: normal dorsalis pedis pul Vascular exam: PRESENT: normal capillary refill GI/Abdominal exam: PRESENT: normal bowel sounds, soft. ABSENT: distended, guarding, mass, organolmegaly, rebound, tenderness Rectal exam: PRESENT: deferred Extremities exam: PRESENT: tenderness, other - Velcro splint to Rt ankle. ABSENT: calf tenderness, clubbing, full ROM - Right ankle secondary to fracture , pedal edema Neurological exam: PRESENT: alert, awake, oriented to person, oriented to place , oriented to time, oriented to situation, CN II-XII grossly intact. ABSENT: motor sensory deficit Psychiatric exam: PRESENT: appropriate affect, normal mood. ABSENT: homicidal ideation, suicidal ideation Skin exam: PRESENT: dry, intact, warm. ABSENT: cyanosis, rash Results Laboratory Results: 08/12/17 06:45 08/12/17 06:45 08/12/17 08/12/17 06:45 06:45 WBC 9.2 RBC 4.59 Hgb 14.0 Hct 41.3 MCV 90 MCH 30.4 MCHC 33.8 RDW 14.5 H Plt Count 269 Seg Neutrophils % 73.4 Lymphocytes % 13.9 Monocytes % 9.2 Eosinophils % 2.7 Basophils % 0.8 Absolute Neutrophils 6.7 Absolute Lymphocytes 1.3 Absolute Monocytes 0.8 Absolute Eosinophils 0.2 Absolute Basophils 0.1 Sodium 142.6 Potassium 4.0 Chloride 100 Carbon Dioxide 31 H Anion Gap 12 BUN 78 H Creatinine 1.52 H Est GFR ( Amer) 53 L Est GFR (Non-Af Amer) 44 L Glucose 114 H Calcium 9.4 Magnesium 2.7 H Impressions: Chest X-Ray 08/05/17 14:04 IMPRESSION: CARDIAC ENLARGEMENT. VASCULAR CONGESTION. Head CT 08/05/17 15:04 IMPRESSION: CHRONIC CHANGES OF ATROPHY AND MICROVASCULAR ISCHEMIA. LEFT POSTERIOR SCALP SWELLING/HEMATOMA. NO FRACTURE OR OTHER ACUTE FINDINGS. EVIDENCE OF ACUTE STROKE: NO. Carotid Doppler Study 08/08/17 00:00 IMPRESSION: NO HEMODYNAMICALLY SIGNIFICANT STENOSIS. Ankle X-Ray 08/10/17 00:00 IMPRESSION: There appears to be a nondisplaced fracture of the distal fibula. Elbow X-Ray 08/10/17 00:00 IMPRESSION: No acute abnormality is seen. Transfer Plan - Disposition Transfer Plan: Patient is stable to discharge to [facility] for acute rehabilitation once cam walker has been delivered. - Time Spent with Patient Time spent with patient: Less than 30 Minutes Qualifiers - * PATEINT BEING DISCHARGED WITH ANY OF THE FOLLOWING DIAGNOSIS?: Heart Failure HF Pt being discharged on ACEI for LVEF less than 40%?: No Reason(s) for not prescribing ACEI:: Not indicated - On Losartan HF Pt being discharged on ARBS for LVEF less than 40%?: Yes HF Pt with Afib discharged with Warfarin?: No Reason(s) for not prescribing Warfarin:: Not indicated - On Eliquis HF Pt discharged on evidence-based Beta Lois:: Yes
[2017-08-12] MEDS: TAMSULOSIN HCL 0.4 MG CAP.SR.24H PO SCH (18:32)
[2017-08-12] MEDS: INSULIN DETEMIR 100 UNIT/ML 3 ML PEN SUBCUT SCH (21:16)
[2017-08-12] MEDS: SIMVASTATIN 10 MG TABLET PO SCH (21:16)
--- NOTE | 2017-08-12 21:23 | PDOC PROGRESS REPORT ---
Subjective Progress Note for:: 08/11/17 Subjective:: Patient developed severe pain in the left elbow and is unable to ambulate with walker. Patient claims to be doing well. He is denying any chest, neck discomfort. Currently denying any significant symptoms. Has some shortness of breath on exertion. Patient claims that he has not seen a personal carer in quite some time. Therefore have written a consultation for Dr. Jessica whom he claims may have seen in the past. Patient was started on Eliquis at 2.5 mg p.o. twice daily yesterday which seems to be right dose in view of patient's age and stage III renal dysfunction.. Telemetry shows patient maintaining atrial fibrillation. Reason For Visit: HEART FAILURE Physical Exam Vital Signs: Temp Pulse Resp BP Pulse Ox 97.5 F 91 18 104/61 98 08/11/17 15:37 08/11/17 19:00 08/11/17 15:37 08/11/17 15:37 08/11/17 15:42 Intake & Output 08/10/17 08/11/17 08/12/17 06:59 06:59 06:59 Intake Total 1202 930 700 Output Total 250 790 Balance 1202 680 -90 Weight 75.3 kg 75.3 kg Exam: GENERAL: well-nourished and in no acute distress. Alert and oriented x3 HEAD: Atraumatic, normocephalic. EYES: Pupils equal round and reactive to light, extraocular movements intact, sclera anicteric, conjunctiva are normal. ENT: TMs normal, nares patent, oropharynx clear without exudates. Moist mucous membranes. No oral ulcerations or bleeding gums noted NECK: supple without lymphadenopathy. Trachea is central. No cervical or axillary lymphadenopathy noted. Carotids are 2+, JVD WNL LUNGS: Respiration seems nonlabored, no significant accessory muscle action noted. Breath sounds clear to auscultation bilaterally and equal noted except for few a scattered wheezes rales or rhonchi noted. No significant dullness noted on percussion. CHEST: Palpation of the chest wall shows no significant chest wall tenderness. No other significant abnormalities noted. 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 ABDOMEN: Soft, no significant tenderness appreciated, normoactive bowel sounds. No guarding, no rebound. No rigidity noted . No masses appreciated. EXTREMITIES: Pedal pulses are 1-2+, no calf tenderness noted. No clubbing or cyanosis.1+ pedal edema noted right lower extremity which is in a cast. NEUROLOGICAL: Focused neurological exam showed no significant neurologic deficit. Normal speech, no focal weakness appreciated. PSYCH: Normal mood, normal affect. Judgment and insight within normal limits. SKIN: No significant ecchymosis, skin is noted to be warm. MUSCULOSKELETAL EXAM: No significant acute joint swelling noted. Results Laboratory Results: 08/11/17 04:30 08/11/17 04:30 08/11/17 08/11/17 04:30 04:30 WBC 11.3 H RBC 4.38 Hgb 13.1 L Hct 39.5 MCV 90 MCH 30.0 MCHC 33.3 RDW 14.3 H Plt Count 198 Seg Neutrophils % Not Reportable Lymphocytes % Not Reportable Monocytes % Not Reportable Eosinophils % Not Reportable Basophils % Not Reportable Absolute Neutrophils Not Reportable Absolute Lymphocytes Not Reportable Absolute Monocytes Not Reportable Absolute Eosinophils Not Reportable Absolute Basophils Not Reportable Sodium 137.0 Potassium 4.3 Chloride 95 L Carbon Dioxide 28 Anion Gap 14 BUN 71 H Creatinine 1.38 H Est GFR ( Amer) > 60 Est GFR (Non-Af Amer) 49 L Glucose 268 H Calcium 9.0 Impressions: Chest X-Ray 08/05/17 14:04 IMPRESSION: CARDIAC ENLARGEMENT. VASCULAR CONGESTION. Head CT 08/05/17 15:04 IMPRESSION: CHRONIC CHANGES OF ATROPHY AND MICROVASCULAR ISCHEMIA. LEFT POSTERIOR SCALP SWELLING/HEMATOMA. NO FRACTURE OR OTHER ACUTE FINDINGS. EVIDENCE OF ACUTE STROKE: NO. Carotid Doppler Study 08/08/17 00:00 IMPRESSION: NO HEMODYNAMICALLY SIGNIFICANT STENOSIS. Ankle X-Ray 08/10/17 00:00 IMPRESSION: There appears to be a nondisplaced fracture of the distal fibula. Elbow X-Ray 08/10/17 00:00 IMPRESSION: No acute abnormality is seen. Assessment & Plan - Diagnosis (1) Syncope and collapse Is this a current diagnosis for this admission?: Yes (2) Congestive heart failure (CHF) Qualifiers: Heart failure type: diastolic Heart failure chronicity: acute on chronic Qualified Code(s): I50.33 - Acute on chronic diastolic (congestive) heart failure Is this a current diagnosis for this admission?: Yes (3) Acute and chronic respiratory failure with hypoxia Is this a current diagnosis for this admission?: Yes (4) Diabetes mellitus Qualifiers: Diabetes mellitus type: type 2 Diabetes mellitus complication status: without complication Is this a current diagnosis for this admission?: Yes (5) Dyslipidemia Is this a current diagnosis for this admission?: Yes (6) Hypertension Qualifiers: Hypertension type: essential hypertension Is this a current diagnosis for this admission?: Yes (7) Pulmonary hypertension Is this a current diagnosis for this admission?: Yes (8) Atrial fibrillation Qualifiers: Atrial fibrillation type: paroxysmal Qualified Code(s): I48.0 - Paroxysmal atrial fibrillation Is this a current diagnosis for this admission?: Yes (9) Obstructive sleep apnea Is this a current diagnosis for this admission?: Yes - Notes Notes: Patient has been able to ambulate with the help of a walker. However he is still very weak and tired. He is expected to find a rehab bed tomorrow. Syncope and collapse: No further recurrence of syncope or near syncope while in the hospital. Exact etiology not clear. Differential diagnosis includes cardiac dysrhythmia, postural hypotension, hypoglycemia etc. so far no significant cardiac dysrhythmia noted except for atrial fibrillation with somewhat of a rapid ventricular response. Have increased metoprolol succinate to 25 mg p.o. twice daily. Heart rate seemed to be coming under better control. Congestive heart failure: Acute on chronic diastolic heart failure. Patient also has a history of severe pulmonary hypertension. Echocardiogram shows severe pulmonary hypertension with significant RV systolic dysfunction. Continue with diuretic therapy. Currently is stable. No volume overload noted on today's exam. Diabetes: Recommend good control but avoid any hypo-or hyperglycemia. Dyslipidemia: Continue statin therapy. Hypertension: Systemic would consider liberal control in this elderly gentleman. Pulmonary hypertension: Patient has history of severe pulmonary hypertension. Possibly secondary to chronic left heart failure. Will obtain an arterial blood gas. Obstructive sleep apnea: Patient will be instructed to bring his CPAP machine and use during this hospitalization. Patient advised compliance with CPAP machine and chronic oxygen supplementation. Abnormal urinalysis: Patient currently on antibiotics. Atrial fibrillation: Chronic based on chart review. Patient was started on Eliquis 2.5 mg p.o. twice daily. Continue with this dose. Patient is tolerating this well. Heart rate seems relatively well controlled. - Time Time with patient: 15-25 minutes - CODE STATUS was discussed, patient remains full code. Surrogate decision-maker unchanged. Multiple medical problems were addressed. More than 50% of the time spent coordinating care, discussing management plans with involved caregivers. Management plans discussed with involved personnels. Medical decision making was of moderate to high complexity , patient's has multiple comorbidities. Medications reviewed and adjusted accordingly: Yes
--- NOTE | 2017-08-12 21:27 | PDOC PROGRESS REPORT ---
Subjective Progress Note for:: 08/12/17 Subjective:: Patient symptoms are now much more improved. He was able to walk short distances with the help of walker and physical therapy. Patient claims to be doing well. He is denying any chest, neck discomfort. Currently denying any significant symptoms. Has some shortness of breath on exertion. Patient overall much improved and is stable for discharge from cardiac standpoint. Telemetry shows patient maintaining atrial fibrillation. Reason For Visit: HEART FAILURE Physical Exam Vital Signs: Temp Pulse Resp BP Pulse Ox 97.3 F 122 H 18 108/82 100 08/12/17 16:20 08/12/17 16:20 08/12/17 16:20 08/12/17 16:20 08/12/17 16:20 Intake & Output 08/11/17 08/12/17 08/13/17 06:59 06:59 06:59 Intake Total 930 920 940 Output Total 818 057 5552 Balance 680 -20 -185 Weight 75.3 kg 71.8 kg Exam: GENERAL: well-nourished and in no acute distress. Alert and oriented x3 HEAD: Atraumatic, normocephalic. EYES: Pupils equal round and reactive to light, extraocular movements intact, sclera anicteric, conjunctiva are normal. ENT: TMs normal, nares patent, oropharynx clear without exudates. Moist mucous membranes. No oral ulcerations or bleeding gums noted NECK: supple without lymphadenopathy. Trachea is central. No cervical or axillary lymphadenopathy noted. Carotids are 2+, JVD WNL LUNGS: Respiration seems nonlabored, no significant accessory muscle action noted. Few scattered wheezes rales or rhonchi noted. No significant dullness noted on percussion. CHEST: Palpation of the chest wall shows no significant chest wall tenderness. No other significant abnormalities noted. 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 ABDOMEN: Soft, no significant tenderness appreciated, normoactive bowel sounds. No guarding, no rebound. No rigidity noted . No masses appreciated. EXTREMITIES: Pedal pulses are 1-2+, no calf tenderness noted. No clubbing or cyanosis. 1+ edema noted right lower extremity which has a cast on. Left lower extremity has trace edema. NEUROLOGICAL: Focused neurological exam showed no significant neurologic deficit. Normal speech, no focal weakness appreciated. PSYCH: Normal mood, normal affect. Judgment and insight within normal limits. SKIN: No significant ecchymosis, skin is noted to be warm. MUSCULOSKELETAL EXAM: No significant acute joint swelling noted. Results Laboratory Results: 08/12/17 06:45 08/12/17 06:45 08/12/17 08/12/17 06:45 06:45 WBC 9.2 RBC 4.59 Hgb 14.0 Hct 41.3 MCV 90 MCH 30.4 MCHC 33.8 RDW 14.5 H Plt Count 269 Seg Neutrophils % 73.4 Lymphocytes % 13.9 Monocytes % 9.2 Eosinophils % 2.7 Basophils % 0.8 Absolute Neutrophils 6.7 Absolute Lymphocytes 1.3 Absolute Monocytes 0.8 Absolute Eosinophils 0.2 Absolute Basophils 0.1 Sodium 142.6 Potassium 4.0 Chloride 100 Carbon Dioxide 31 H Anion Gap 12 BUN 78 H Creatinine 1.52 H Est GFR ( Amer) 53 L Est GFR (Non-Af Amer) 44 L Glucose 114 H Calcium 9.4 Magnesium 2.7 H EKG Comments: Telemetry shows atrial fibrillation with controlled ventricular response. Impressions: Chest X-Ray 08/05/17 14:04 IMPRESSION: CARDIAC ENLARGEMENT. VASCULAR CONGESTION. Head CT 08/05/17 15:04 IMPRESSION: CHRONIC CHANGES OF ATROPHY AND MICROVASCULAR ISCHEMIA. LEFT POSTERIOR SCALP SWELLING/HEMATOMA. NO FRACTURE OR OTHER ACUTE FINDINGS. EVIDENCE OF ACUTE STROKE: NO. Carotid Doppler Study 08/08/17 00:00 IMPRESSION: NO HEMODYNAMICALLY SIGNIFICANT STENOSIS. Ankle X-Ray 08/10/17 00:00 IMPRESSION: There appears to be a nondisplaced fracture of the distal fibula. Elbow X-Ray 08/10/17 00:00 IMPRESSION: No acute abnormality is seen. Assessment & Plan - Diagnosis (1) Syncope and collapse Is this a current diagnosis for this admission?: Yes (2) Congestive heart failure (CHF) Qualifiers: Heart failure type: diastolic Heart failure chronicity: acute on chronic Qualified Code(s): I50.33 - Acute on chronic diastolic (congestive) heart failure Is this a current diagnosis for this admission?: Yes (3) Acute and chronic respiratory failure with hypoxia Is this a current diagnosis for this admission?: Yes (4) Diabetes mellitus Qualifiers: Diabetes mellitus type: type 2 Diabetes mellitus complication status: without complication Is this a current diagnosis for this admission?: Yes (5) Dyslipidemia Is this a current diagnosis for this admission?: Yes (6) Hypertension Qualifiers: Hypertension type: essential hypertension Is this a current diagnosis for this admission?: Yes (7) Pulmonary hypertension Is this a current diagnosis for this admission?: Yes (8) Atrial fibrillation Qualifiers: Atrial fibrillation type: paroxysmal Qualified Code(s): I48.0 - Paroxysmal atrial fibrillation Is this a current diagnosis for this admission?: Yes (9) Obstructive sleep apnea Is this a current diagnosis for this admission?: Yes - Notes Notes: Gout attack under control. Patient is more ambulatory. Have discussed overall prognosis with the patient. Patient does have severe pulmonary hypertension. Advised importance of CPAP therapy and continuous oxygen supplementation. Syncope and collapse: No further recurrence of syncope or near syncope while in the hospital. Exact etiology not clear. Differential diagnosis includes cardiac dysrhythmia, postural hypotension, hypoglycemia etc. so far no significant cardiac dysrhythmia noted except for atrial fibrillation with somewhat of a rapid ventricular response. Have increased metoprolol succinate to 25 mg p.o. twice daily. Heart rate seemed to be coming under better control. Congestive heart failure: Acute on chronic diastolic heart failure. Patient also has a history of severe pulmonary hypertension. Echocardiogram shows severe pulmonary hypertension with significant RV systolic dysfunction. Continue with diuretic therapy. Currently is stable. No volume overload noted on today's exam. Diabetes: Recommend good control but avoid any hypo-or hyperglycemia. Dyslipidemia: Continue statin therapy. Hypertension: Systemic would consider liberal control in this elderly gentleman. Pulmonary hypertension: Patient has history of severe pulmonary hypertension. Possibly secondary to chronic left heart failure. Will obtain an arterial blood gas. Obstructive sleep apnea: Patient will be instructed to bring his CPAP machine and use during this hospitalization. Patient advised compliance with CPAP machine and chronic oxygen supplementation. Abnormal urinalysis: Patient currently on antibiotics. Atrial fibrillation: Chronic based on chart review. Patient was started on Eliquis 2.5 mg p.o. twice daily. Continue with this dose. Patient is tolerating this well. Heart rate seems relatively well controlled. - Time Time with patient: 15-25 minutes - CODE STATUS was discussed, patient remains full code. Surrogate decision-maker unchanged. Multiple medical problems were addressed. More than 50% of the time spent coordinating care, discussing management plans with involved caregivers. Management plans discussed with involved personnels. Medical decision making was of moderate to high complexity , patient's has multiple comorbidities. Patient being discharged today. Medications reviewed and adjusted accordingly: Yes
[2017-08-12 22:15] VITALS: BP 113/87
== END 2017-08-12 23:00 | DRG 291 ==
LOC: ER 13:53 → EH 15:09 → 4N 18:30
PROVIDERS: ADMIT Emergency Medicine; ATTEND Emergency Medicine
PROC: 5A09557 Assistance with Respiratory Ventilation, Greater than 96 Consecutive Hours, Continuous Positive Airway Pressure (ICD-10-PCS; principal; 2017-08-05)
DX: I50.33 Acute on chronic diastolic (congestive) heart failure (principal); J96.21 Acute and chronic respiratory failure with hypoxia; E11.22 Type 2 diabetes mellitus with diabetic chronic kidney disease; I08.1 Rheumatic disorders of both mitral and tricuspid valves; D72.829 Elevated white blood cell count, unspecified; S00.03XA Contusion of scalp, initial encounter; J44.1 Chronic obstructive pulmonary disease with (acute) exacerbation; I13.0 Hypertensive heart and chronic kidney disease with heart failure and stage 1 through stage 4 chronic kidney disease, or unspecified chronic kidney disease; I27.20 Pulmonary hypertension, unspecified; E78.00 Pure hypercholesterolemia, unspecified; I25.10 Atherosclerotic heart disease of native coronary artery without angina pectoris; S82.61XA Displaced fracture of lateral malleolus of right fibula, initial encounter for closed fracture; T38.0X5A Adverse effect of glucocorticoids and synthetic analogues, initial encounter; W18.30XA Fall on same level, unspecified, initial encounter; N18.3 Chronic kidney disease, stage 3 (moderate); I48.0 Paroxysmal atrial fibrillation; G47.33 Obstructive sleep apnea (adult) (pediatric); N40.0 Benign prostatic hyperplasia without lower urinary tract symptoms; M19.90 Unspecified osteoarthritis, unspecified site; M10.9 Gout, unspecified; Z99.81 Dependence on supplemental oxygen; Z79.899 Other long term (current) drug therapy; Z79.4 Long term (current) use of insulin; Z79.01 Long term (current) use of anticoagulants; Z87.891 Personal history of nicotine dependence; Z85.828 Personal history of other malignant neoplasm of skin; Z80.9 Family history of malignant neoplasm, unspecified
CPT/HCPCS: 36415; 70450; 71045; 80048; 81001; 82962; 83735; 83880; 84100; 84484; 84550; 85025; 85027; 85610; 87086; 93005; 93010; 93306; 93880; 94660; 99285; G8978-GP; G8979-GP; G8987-GO; G8988-GO; J0696; J1815; J1940; J2920; J3490; L1902; L4386

== ENCOUNTER 2020-06-10 10:32 | Emergency (ER) | payer MEDICARE, MEDICAID ==
[2020-06-10 11:17] LABS: ABSOLUTE BASOPHILS # (AUTO) 0.1 10^3/uL (0.0-0.2); ABSOLUTE EOSINOPHILS # (AUTO) 0.1 10^3/uL (0.0-0.6); ABSOLUTE LYMPHOCYTES (AUTO) 0.9 10^3/uL (0.5-4.7); ABSOLUTE MONOCYTES (AUTO) 0.4 10^3/uL (0.1-1.4); ABSOLUTE NEUT (AUTO) 5.6 10^3/uL (1.7-8.2); BASOPHILS % (AUTO) 1.2 % (0-2); EOSINOPHILS % (AUTO) 1.1 % (0-6); HEMATOCRIT 41.9 % (37.9-51.0); HEMOGLOBIN 14.1 g/dL (13.5-17.0); LYMPHOCYTES % (AUTO) 13.1 % (13-45); MEAN CORPUSCULAR HEMOGLOBIN 31.8 pg (27.0-33.4); MEAN CORPUSCULAR HGB CONC 33.8 g/dL (32.0-36.0); MEAN CORPUSCULAR VOLUME 94 fl (80-97); MONOCYTES % (AUTO) 6.3 % (3-13); PLATELET COUNT 150 10^3/uL (150-450); RED BLOOD COUNT 4.45 10^6/uL (4.35-5.55); RED CELL DISTRIBUTION WIDTH 14.2 % (11.5-14.0); SEGMENTED NEUTROPHILS % (AUTO) 78.3 % (42-78); TOTAL CELLS COUNTED % (AUTO) 100 %; WHITE BLOOD COUNT 7.1 10^3/uL (4.0-10.5)
[2020-06-10 11:22] LABS: INTERNATIONAL RATION (INR) 1.46; PROTHROMBIN TIME 17.9 SEC (11.4-15.4)
[2020-06-10 11:25] LABS: D-DIMER 0.38 ug/mL (0.00-0.50)
[2020-06-10 11:33] LABS: ALBUMIN 3.9 g/dL (3.5-5.0); ALKALINE PHOSPHATASE 98 U/L (38-126); ANION GAP 8 (5-19); ASPARTATE AMINO TRANSFERASE 33 U/L (17-59); BILIRUBIN,DIRECT 0.2 mg/dL (0.0-0.4); BILIRUBIN,TOTAL 1.1 mg/dL (0.2-1.3); BLOOD UREA NITROGEN 33 mg/dL (7-20); CALCIUM 9.4 mg/dL (8.4-10.2); CARBON DIOXIDE 24 mmol/L (22-30); CHLORIDE 109 mmol/L (98-107); CREATINE KINASE 56 U/L (55-170); GLUCOSE 213 mg/dL (75-110); POTASSIUM 4.7 mmol/L (3.6-5.0); TOTAL PROTEIN 7.1 g/dL (6.3-8.2)
[2020-06-10 11:45] LABS: TROPONIN I 0.014 ng/mL
--- NOTE | 2020-06-10 12:02 | RADIOLOGY REPORT (SQ) ---
EXAM DESCRIPTION: CHEST SINGLE VIEW IMAGES COMPLETED DATE/TIME: 06/10/2020 11:27 am REASON FOR STUDY: cp COMPARISON: 08/05/2017 EXAM PARAMETERS: NUMBER OF VIEWS: One view. TECHNIQUE: Single frontal radiographic view of the chest acquired. RADIATION DOSE: NA LIMITATIONS: None. FINDINGS: LUNGS AND PLEURA: No opacities, masses or pneumothorax. No pleural effusion. MEDIASTINUM AND HILAR STRUCTURES: No masses. Contour normal. HEART AND VASCULAR STRUCTURES: Cardiomegaly without significant central vascular congestion. BONES: No acute findings. HARDWARE: None in the chest. OTHER: No other significant finding. IMPRESSION: Cardiomegaly without significant central vascular congestion. No discrete radiographic evidence of acute cardiopulmonary abnormality. TECHNICAL DOCUMENTATION: JOB ID: [id number] 2010 [employer]- All Rights Reserved Reading location - IP/workstation name: [email or web address]
[2020-06-10] MEDS ORDERED: BUMETANIDE INJ/PF 1 MG/4 ML SDV IV ONE (13:21)
[2020-06-10] MEDS ORDERED: METOLAZONE 5 MG TABLET PO ONE (13:21)
--- NOTE | 2020-06-10 14:16 | ER Document Report ---
ED Cardiac - General Chief Complaint: Chest Pain Stated Complaint: CHEST PAIN Time Seen by Provider: 06/10/20 10:50 Primary Care Provider: KATHI GARCIA MD [Primary Care Provider] - Follow up as needed Mode of Arrival: Ambulatory Information source: Patient Notes: 06/10/20 11:08 - ED Nursing Note by IGNACIO HAM Num: [id number] : 1935 Patient Age: 84 Patient presents to ED with report of SOB that has increased over the last two weeks. Patient states "I think I have too much fluid." patient also reports an episode of CP this morning when sitting down to eat that is better now. Patient noted to be tachypneic and SOB, especially with exertion. Patient reports hx of DM type 2, HTN, HLD, CHF, sleeps with CPAP at night and 3L via [place] home oxygen PRN. Patient states that he takes Eliquis but does not know what for. Patient noted to have an irregular waveform on monitor. Alert, oriented, in stretcher with rails up x 2 and stretcher locked and low. Brother at bedside. Patient has no sick contacts, states he was very scared to come here due to coronavirus. [facility] 84-year-old male arrives with his brother Sudarshan and patient reports he has had increased dyspnea on exertion and shortness of breath. He partied on Tuesday morning and by Tuesday afternoon had a syncopal episode. Patient usually uses oxygen but did not use his oxygen for 5 hours [place] [facility]. He got home and before he could put his nasal cannula and he passed out and awoke on the floor with abrasion to his right forehead. He denies any cephalgia or nuchal rigidity at this time. He reports he uses 3 L of oxygen /. He does use some increased oxygen while using CPAP. Brother is doing well and none of the 2 men have any influenza or Covid symptoms. They deny any rhinorrhea deny any cough denies any diarrhea nausea vomiting. Patient denies any nuchal rigidity. TRAVEL OUTSIDE OF THE [place] IN LAST 30 DAYS: No - HPI Patient complains to provider of: Chest pain, Shortness of breath - Related Data Allergies/Adverse Reactions: No Known Allergies Allergy (Verified 08/05/17 14:42) Home Medications: Eliquis. BP med. Statin med Past Medical History - General Information source: Patient - Social History Smoking Status: Former Smoker Cigarette use (# per day): No Chew tobacco use (# tins/day): No Smoking Education Provided: No Frequency of alcohol use: None Drug Abuse: None Lives with: Family Family History: Reviewed & Not Pertinent, Malignancy Patient has suicidal ideation: No Patient has homicidal ideation: No - Past Medical History Cardiac Medical History: Reports: Hx Atrial Fibrillation, Hx Congestive Heart Failure, Hx Coronary Artery Disease, Hx Hypercholesterolemia, Hx Hypertension - on meds Denies: Hx Heart Attack Pulmonary Medical History: Denies: Hx Asthma, Hx Bronchitis, Hx COPD, Hx Pneumonia Neurological Medical History: Denies: Hx Cerebrovascular Accident, Hx Seizures Endocrine Medical History: Reports: Hx Diabetes Mellitus Type 2 Renal/ Medical History: Reports: Hx Benign Prostatic Hyperplasia. Denies: Hx Peritoneal Dialysis Musculoskeletal Medical History: Reports Hx Arthritis Psychiatric Medical History: Denies: Hx Depression Past Surgical History: Reports: Other - Skin cancer excision - Immunizations Immunizations up to date: Yes Hx Diphtheria, Pertussis, Tetanus Vaccination: No - unsure Hx Pneumococcal Vaccination: 05/30/16 Review of Systems - Review of Systems Constitutional: See HPI, Malaise, Weakness, Recent illness EENT: No symptoms reported Cardiovascular: See HPI, Chest pain Respiratory: See HPI, Short of breath Gastrointestinal: No symptoms reported Genitourinary: No symptoms reported Male Genitourinary: No symptoms reported Musculoskeletal: No symptoms reported Skin: No symptoms reported Hematologic/Lymphatic: No symptoms reported Neurological/Psychological: See HPI, Weakness Physical Exam - Vital signs Vitals: Pulse Resp BP Pulse Ox 92 20 154/103 H 95 06/10/20 10:41 06/10/20 10:41 06/10/20 10:41 06/10/20 10:41 Interpretation: Normal - General General appearance: Appears well, Alert - HEENT Head: Normocephalic, Abrasions - Abrasion to right parietal frontal area a pproximately 4 cm diameter healing well. Eyes: Normal Pupils: PERRL - Respiratory Respiratory status: No respiratory distress Chest status: Nontender Breath sounds: Normal Chest palpation: Normal - Cardiovascular Rhythm: Regular Heart sounds: Normal auscultation Murmur: No - Abdominal Inspection: Normal Distension: No distension Bowel sounds: Normal Tenderness: Nontender Organomegaly: No organomegaly - Rectal Prostate: Other - Deferred - Genitourinary Scrotum: Other - Deferred - Back Back: Normal, Nontender - Extremities General upper extremity: Normal inspection, Nontender, Normal color, Normal ROM, Normal temperature General lower extremity: Normal inspection, Nontender, Normal color, Normal ROM, Normal temperature, Normal weight bearing, Other - No pitting edema. No: Luis Alberto's sign - Neurological Neuro grossly intact: Yes Cognition: Normal Orientation: AAOx4 [place] Coma Scale Eye Opening: Spontaneous [place] Coma Scale Verbal: Oriented [place] Coma Scale Motor: Obeys Commands [place] Coma Scale Total: 15 Speech: Normal Motor strength normal: LUE, RUE, LLE, RLE Sensory: Normal - Psychological Associated symptoms: Anxious - Skin Skin Temperature: Warm Skin Moisture: Dry Skin Color: Normal Course - Vital Signs Vital signs: Temp Pulse Resp BP Pulse Ox 92 25 H 136/81 H 98 06/10/20 10:41 06/10/20 11:01 06/10/20 10:54 06/10/20 11:01 - Laboratory Results Result Diagrams: 06/10/20 10:55 06/10/20 10:55 Laboratory Results Interpreted: 06/10/20 06/10/20 06/10/20 10:55 10:55 10:55 RDW 14.2 H Seg Neutrophils % 78.3 H PT 17.9 H Chloride 109 H BUN 33 H Creatinine 1.49 H Est GFR ( Amer) 54 L Est GFR (MDRD) Non-Af 45 L Glucose 213 H NT-Pro-B Natriuret Pep 06/10/20 10:55 RDW Seg Neutrophils % PT Chloride BUN Creatinine Est GFR ( Amer) Est GFR (MDRD) Non-Af Glucose NT-Pro-B Natriuret Pep 2370 H Critical Laboratory Results Reviewed: Yes Attending or Supervising Physician who Reviewed Labs: CHAO PEARSON JR - Radiology Results Critical Radiology Results Reviewed: No Critical Results Attending or Supervising Physician who Reviewed Radiology: CHAO PEARSON JR - EKG Interpretation by Me EKG shows normal: Sinus rhythm Rate: Normal Rhythm: A.Fib [place]/QRS: RBBB - 123 heart rate with atrial fibrillation and incomplete right bundle branch block and inferior infarct old and anterior infarct age indeterminate. I read this EKG and I agree with the EKG machine interpretation. Discharge - Discharge Clinical Impression: Angina at rest, Atypical syncope Congestive heart failure (CHF) Qualifiers: Heart failure type: unspecified Heart failure chronicity: unspecified Qualified Code(s): I50.9 - Heart failure, unspecified Fall Qualifiers: Encounter type: initial encounter Qualified Code(s): W19.XXXA - Unspecified fall, initial encounter Abrasion head Qualifiers: Encounter type: initial encounter Qualified Code(s): S00.91XA - Abrasion of unspecified part of head, initial encounter Condition: Stable Disposition: HOME, SELF-CARE Additional Instructions: Follow-up with personal doctor this week; return to ER as needed; encourage fluids up to 3/4 L daily. Take your medicines as your usual protocol. Referrals: KATHI GARCIA MD [Primary Care Provider] - Follow up as needed
--- NOTE | 2020-06-10 14:59 | RADIOLOGY REPORT (SQ) ---
EXAM DESCRIPTION: CT HEAD WITHOUT IMAGES COMPLETED DATE/TIME: 06/10/2020 2:50 pm REASON FOR STUDY: loc 3 days ago COMPARISON: 08/05/2017 TECHNIQUE: Axial images acquired through the brain without intravenous contrast. Images reviewed wi th bone, brain and subdural windows. Additional sagittal and coronal reconstructions were generated. Images stored on PACS. All CT scanners at this facility use dose modulation, iterative reconstruction, and/or weight based d osing when appropriate to reduce radiation dose to as low as reasonably achievable (ALARA). [facility]: Dose Right [facility]: CareDose [facility]: Dose Right [facility]: Teradose 4D [facility]: Smart S[place]on RADIATION DOSE: CT Rad equipment meets quality standard of care and radiation dose reduction techniq ues were employed. CTDIvol: 53.2 mGy. DLP: 1017 mGy-cm. mGy. LIMITATIONS: None. FINDINGS: VENTRICLES: Prominent. CEREBRUM: No masses. No hemorrhage. No midline shift. Areas of low density in the white matter mos t likely due to chronic micro-vascular ischemic change. No evidence for acute infarction. CEREBELLUM: No masses. No hemorrhage. No alteration of density. No evidence for acute infarction. EXTRAAXIAL SPACES: Mild age-related involutional change. No fluid collections. No masses. ORBITS AND GLOBE: No intra- or extraconal masses. Normal contour of globe without masses. CALVARIUM: No fracture. PARANASAL SINUSES: No fluid or mucosal thickening. SOFT TISSUES: No mass or hematoma. OTHER: No other significant finding. IMPRESSION: MILD CHRONIC CHANGES OF ATROPHY AND MICROVASCULAR ISCHEMIA. NO ACUTE PROCESS. EVIDENCE OF ACUTE STROKE: NO. TECHNICAL DOCUMENTATION: JOB ID: [id number] Quality ID # [id number]: Final reports with documentation of one or more dose reduction techniques (e.g., Au tomated exposure control, adjustment of the mA and/or kV according to patient size, use of iterative reconstruction technique) 2010 [employer]- All Rights Reserved Reading location - IP/workstation name: [email or web address]
[2020-06-10 15:07] VITALS: BP 155/87
--- NOTE | 2020-06-10 19:16 | EKG REPORT ---
SEVERITY:- ABNORMAL ECG - ATRIAL FIBRILLATION RIGHT BUNDLE BRANCH BLOCK INFERIOR INFARCT, OLD ANTERIOR INFARCT, AGE INDETERMINATE : Confirmed by: Elsi Hilario MD 10-Jun-2020 19:16:06
== END 2020-06-10 15:07 | disposition home or self-care (01) ==
LOC: ER 10:32
DX: S00.91XA Abrasion of unspecified part of head, initial encounter (principal); W19.XXXA Unspecified fall, initial encounter; I20.9 Angina pectoris, unspecified; R55 Syncope and collapse; R07.9 Chest pain, unspecified; R06.02 Shortness of breath; I48.91 Unspecified atrial fibrillation; I11.0 Hypertensive heart disease with heart failure; I50.9 Heart failure, unspecified; E11.9 Type 2 diabetes mellitus without complications; E78.00 Pure hypercholesterolemia, unspecified; Z79.02 Long term (current) use of antithrombotics/antiplatelets
CPT/HCPCS: 93005; 99285; 96374; 36415; 82550; 83735; 85025; 85610; 80053; 84484; 85379; 83880; 71045; 70450; 93010; J3490; A9270